=== PATIENT | male | born 1935 | race Caucasian/White ===

== ENCOUNTER 2018-06-13 16:21 | Emergency (ER) | payer MEDICARE, OTHER, SELFPAY ==
[2018-06-13 16:30] VITALS: BP 144/74; PULSE 71; RESP 14; TEMP 36.6; O2SAT 98
--- NOTE | 2018-06-13 16:50 | ED_ITS ---
HPI - Extremity Injury (Upper) <KIZZY Blanchard-BC - Last Filed: 06/13/18 21:30> General Chief Complaint: Extremity Injury, Upper Stated Complaint: FALL LEFT ARM INJURY Time Seen by Provider: 06/13/18 16:32 Source: patient Mode of arrival: ambulatory Limitations: no limitations History of Present Illness HPI narrative: Patient states he lost his balance several days ago and fell into a bookshelf with his left forearm. Patient states he tripped in the dark. He states that he has a cut on his left forearm. He states his tetanus was updated less than 5 years ago. He denies any weakness numbness or tingling of his left forearm or hand. He cleaned it out by himself at home and applied a dressing is requesting a both care dressing as his wound still hurts. He states he does not need or want an x-ray today. Related Data Home Medications Medication Instructions Recorded Confirmed carvedilol 6.25 mg tablet 6.25 mg PO BID tab 02/07/18 06/13/18 chlorthalidone 25 mg tablet 25 mg PO DAILY 02/07/18 06/13/18 lisinopril 40 mg tablet 40 mg PO DAILY 02/07/18 06/13/18 pravastatin 20 mg tablet 20 mg PO BEDTIME 02/07/18 06/13/18 aspirin 1 tab PO DAILY 06/13/18 fluticasone 2 spray INTRANASAL DAILY 06/13/18 06/13/18 Allergies Allergy/AdvReac Type Severity Reaction Status Date / Time No Known Drug Allergies Allergy Verified 02/07/18 13:48 Review of Systems <MARGOT Blanchard - Last Filed: 06/13/18 21:30> Review of Systems GENERAL: Denies chills, fatigue, malaise, fever, sweats. HEENT: Denies sinus pain, ear pain, sore throat, difficulty swallowing, dizziness. RESPIRATORY: Denies dyspnea, cough, wheezing, hemoptysis, sputum. CARDIOVASCULAR: Denies chest pain, palpitations, orthopnea, edema, GASTROINTESTINAL: Denies nausea, vomiting, abdominal pain, diarrhea, constipation, melena. : Denies dysuria, frequency, incontinence, hematuria, urinary retention. MUSCULOSKELETAL: See HPI SKIN: See HPI NEUROLOGIC: Denies weakness, headache, numbness, change in speech, confusion, seizures, incoordination. PSYCHIATRIC: No concerning psychosocial issues. 12 point review of systems is negative except for those stated above Exam <Jennifer KIZZY Martinez-BC - Last Filed: 06/13/18 21:30> Narrative Exam Narrative: GENERAL: This is a well-nourished, well-developed patient, no acute distress with forearm graft. HEAD: Atraumatic. Normocephalic. No temporal or scalp tenderness. EYES: Pupils equal round and reactive. Extraocular motions intact. No scleral icterus. No injection or drainage. ENT: Nose without bleeding, purulent drainage or septal hematoma. Throat without erythema, tonsillar hypertrophy or exudate. Uvula midline. Airway patent. NECK: Trachea midline. No JVD or lymphadenopathy. Supple, nontender, no meningeal signs. CARDIOVASCULAR: Regular rate and rhythm without murmurs, gallops, or rubs. RESPIRATORY: Clear to auscultation. Breath sounds equal bilaterally. No wheezes , rales, or rhonchi. GASTROINTESTINAL: Abdomen soft, non-tender, nondistended. No hepato-splenomegaly , or palpable masses. No guarding. EXTREMITIES: Left forearm and hand are nontender tender to palpation other than area of laceration. Positive radial pulse left hand full range of motion noted left fingers and wrist. Capillary refill less than 2 sec left hand all fingers. BACK: Nontender without deformity or crepitance. No flank tenderness. NEURO: AOx3. SKIN: Patient has a 3 cm full-thickness wound to his left forearm. This is it is through dermis into fascia. No tendon or muscle involvement. No obvious foreign bodies. Wound is not well-approximated. approximately 1 cm deep per measurement. No erythema or discharge. Initial Vital Signs Initial Vital Signs: Vital Signs Temperature 97.9 F 06/13/18 16:30 Pulse Rate 71 06/13/18 16:30 Respiratory Rate 14 06/13/18 16:30 Blood Pressure 144/74 H 06/13/18 16:30 Pulse Oximetry 98 06/13/18 16:30 <Lindy Suarez DO - Last Filed: 06/14/18 08:17> Initial Vital Signs Initial Vital Signs: Vital Signs Temperature 97.9 F 06/13/18 16:30 Pulse Rate 71 06/13/18 16:30 Respiratory Rate 14 06/13/18 16:30 Blood Pressure 144/74 H 06/13/18 16:30 Pulse Oximetry 98 06/13/18 16:30 Course <Jennifer RodriguezKIZZY mccormick-BC - Last Filed: 06/13/18 21:30> Vital Signs - 8 hr 06/13/18 16:30 Temperature 97.9 F Pulse Rate 71 Respiratory Rate 14 Blood Pressure 144/74 H Pulse Oximetry 98 <Lindy Suarez DO - Last Filed: 06/14/18 08:17> Vital Signs - 8 hr 06/13/18 16:30 Temperature 97.9 F Pulse Rate 71 Respiratory Rate 14 Blood Pressure 144/74 H Pulse Oximetry 98 MDM - Extremity Injury (Upper) <Jennifer MartinezMARGOTBC - Last Filed: 06/13/18 21:30> MDM Narrative Medical decision making narrative: Patient presents with chief complaint of wound to left forearm. He states that this happened several days ago and the side of not comfortable closing it with sutures. His tetanus is up-to-date. Given the depth of the wound, I am concerned about a superficial closure over potential abscess so I did place a reformed gauze into the wound after cleansing it with sterile water and Hibiclens. Also flushed out copiously. I discussed follow up with primary care in 2 days for wound re-evaluation. I discussed monitor for signs and symptoms of infection including pus, drainage and fever. Patient had no questions or concerns upon discharge. Discharge Plan Departure Patient Disposition: Home Clinical Impression: Skin tear Discharge Date/Time: 06/13/18 17:44 Interventions: ED Discharge Assessment Last Done: 06/13/18 17:44 Activity Restrictions/Additional Instructions: Please follow-up with her primary care provider in 2 days for wound check. They can evaluate your skin tear and check for signs and symptoms of infection at that time. They could also remove the packing. Please monitor for signs and symptoms of infection including redness from the skin tear site as well as fever. Please follow-up with primary care provider for new or worsening symptoms. Prescriptions: No Action carvedilol 6.25 mg tablet 6.25 mg PO BID RF: 0 chlorthalidone 25 mg tablet 25 mg PO DAILY RF: 0 pravastatin 20 mg tablet 20 mg PO BEDTIME RF: 0 lisinopril 40 mg tablet 40 mg PO DAILY RF: 0 aspirin 81 mg tablet,delayed release (DR/EC) 1 tab PO DAILY RF: 0 fluticasone 50 mcg/actuation spray,suspension 2 spray Intranasal DAILY RF: 0 Referrals: [facility] [Outside] <Lindy Suarez, - Last Filed: 06/14/18 08:17> Cosign ED Attending Cosignature Attestation: I was immediately available in the department for consultation. Documentation has been reviewed. I agree with assessment and plan.
--- NOTE | 2018-06-13 17:41 | PC.NURSE ---
GLF several days ago, tripped in the dark, struck lt forearm on furniture, approx 3 cm arrow shaped full thickness wound, bleeding controlled, distal cms intact, no surrounding redness/edema
--- NOTE | 2018-06-16 17:26 | PC.NURSE ---
follow up call, pt feeling fine, no questions and no improvement needed
== END 2018-06-13 17:44 | disposition home or self-care (01) ==
PROVIDERS: Emergency Provider Nurse Practitioner Family; Family Provider Physician Assistant Medical
DX: S41.112A Laceration without foreign body of left upper arm, initial encounter (principal); W19.XXXA Unspecified fall, initial encounter
CPT/HCPCS: 99282

== ENCOUNTER → 2018-06-15 14:42 | Outpatient (CLI) | payer MEDICARE, OTHER, SELFPAY | PROVIDERS: Family Provider Physician Assistant Medical; Visit Provider Physician Assistant | DX: S41.112A Laceration without foreign body of left upper arm, initial encounter (principal) | CPT/HCPCS: 87070; 87075; 87077; 87186; 87205 ==

== ENCOUNTER → 2018-06-17 14:19 | Outpatient (CLI) | payer MEDICARE, OTHER, SELFPAY ==
--- NOTE | 2018-06-17 | OV.WND_ITS ---
Progress Note Details Patient Name: Shant Young Patient Number: [id number] PatientPatientDate: 06/17/2018 Clinician: Gillian Pedersen Cosigner: Romina Drake Physician / Saw Superintendent: Dony Finch SUBJECTIVE Chief Complaint This information was obtained from the patient Laceration on left arm. Allergies cephalexin (Severity: Severe, Reaction: cardiac arrest) HPI This information was obtained from the patient 06/17/18. Seen by Dr. Finch. The patient's new to our clinic and presents with a deep left arm laceration wound that occurred 5 days ago when he hit the arm on a metal ornamental object in his bedroom. He was seen in the ER and states his tetanus is up to date. He does not report significant pain at the site nor drainage. Family History This information was obtained from the patient Cancer - Sibling, Child, Heart Disease - Mother, Stroke - Father Social History This information was obtained from the patient Former smoker - age 18-20, Alcohol Use - 1/day, Caffeine Use - 1/day, Children, Lives in [facility]- private home, Marital Status - , Retired, [place] Past Medical History This information was obtained from the patient Patient has a medical history of: Hypertension Surgical History This information was obtained from the patient Patient has a surgical history of: Cholecystectomy (1984) Stent placement in abdomen Complaints and Symptoms This information was obtained from the patient Patient complains of: General Notes: I have reviewed and concur with the Review of Systems and Past Family Social History documents completed by the clinician, I have reviewed and concur with the Wound Assessment document completed by the clinician Ear/Nose/Mouth/Throat: Hearing Loss / Aid Hematologic/Lymphatic: Bleeding Tendency Integumentary (Hair/Skin/Nails): Open Sore Prior Wound History: Bleeding Patient denies complaints or symptoms related to: Cardiovascular (Central): Irregular heart beat Constitutional Symptoms (General Health): Chills, Fever Hematologic/Lymphatic: Bleeding / Clotting Disorders Musculoskeletal: Assistive Devices Neurological: Loss of Protective Sensation Prior Wound History: Pain Psychiatric: Memory Loss Respiratory: Shortness of Breath General Notes: Up to date. Medications carvedilol - oral 6.25 mg 1 tablet twice daily pravastatin - oral 20 mg 1 tablet once daily lisinopril - oral 40 mg 1 tablet once daily Adult Low Dose Aspirin - oral 81 mg 1 tablet,delayed release (DR/EC) once daily omeprazole - oral 20 mg 1 capsule,delayed release(DR/EC) once daily chlorthalidone - oral 25 mg 1 tablet once daily gentamicin - topical 0.1 % ointment once daily for 7 days OBJECTIVE Constitutional BP elevated; Low grade fever; Alert and in no distress. Well developed. Alert. Clean appearing.. Height/Length: 68 in (172.72 cm), Weight: 180.5 lbs (82.05 kgs), BMI : 27.4, Temperature: 99.1 ?F (37.28 ?C), Pulse: 58 bpm, Respiratory Rate: 16 breaths/min , Blood Pressure: 141/77 mmHg, Pulse Oximetry: 98 %. Ears, Nose, Mouth, and Throat: Mild hearing deficit. Respiratory: No respiratory distress. Even respirations and without use of accessory muscles.. Gastrointestinal (GI): Non-obese. Nondistended.. Integumentary (Hair, Skin) Mild periwound erythema with warmth. Refer to appropriate clinician wound documentation for this visit; left forearm wound extends to fascia, heavy biofilm and slough over base however no purulent drainage. Wound #1 Left Arm is an acute Full Thickness Laceration and has received a status of Not Healed. Initial wound encounter measurements are 2.5cm length x 1.8cm width x 1.1cm depth, with an area of 4.5 sq cm and a volume of 4.95 cubic cm. Tunneling has been noted at 6:00 with a maximum distance of 1.6cm. No sinus tract has been noted. No undermining has been noted. There is a large amount of purulent drainage noted which has a mild odor. The patient reports a wound pain of level 2/10. The wound margin is rolled. Wound bed has No epithelialization, Yes eschar, Yes slough, Yes bright red, pink, firm granulation. The periwound skin moisture is normal. The periwound skin exhibited: Edema, Induration, Erythema. The periwound skin did not exhibit: Brawny Induration, Excoriation, Callus, Crepitus, Fluctuance, Friable, Rash, Atrophie Ginny, Cyanosis, Ecchymosis, Hemosiderosis, Pallor, Rubor. The temperature of the periwound skin is WNL. Periwound skin presents with s/s of infection. Confirmation Description and Treatment Plan is: Signs and Symptoms Present. Local Pulse is Palpable. Neurological: Cranial nerves grossly intact with symmetric function normal by informal observation.. ASSESSMENT Active Problems ICD-10 (Encounter Diagnosis) S51.812D - Laceration without foreign body of left forearm , subsequent encounter (Encounter Diagnosis) S41.102D - Unspecified open wound of left upper arm, subsequent encounter (Encounter Diagnosis) L08.9 - Local infection of the skin and subcutaneous tissue, unspecified PROCEDURES Wound #1 Wound #1 (Laceration) is located on the left arm. A skin/subcutaneous tissue level surgical debridement with a total area debrided of 4.5 sq cm was performed by Dony Finch MD. Subcutaneous was removed along with devitalized tissue: slough. The following instrument(s) were used: curette. Pain control was achieved using 4% Lido. A time out was conducted prior to the start of the procedure. A moderate amount of bleeding was controlled with silver nitrate. The procedure was tolerated well with a pain level of 0 throughout and a pain level of 0 following the procedure. Post Debridement Measurements: 2.5cm length x 1.8cm width x 1.2cm depth; with an area of 4.5 sq cm and a volume of 5.4 cubic cm; Additional Information Muscle fascia or bone removed and sent to pathology?: No PLAN Wound Orders: Wound #1 Left Arm Anesthetic Topical Xylocaine to wound bed. - Lidocaine used in clinic. Cleanser Cleanse Wound: - Normal saline and gauze, may use distilled water at home. May Shower. - Cover in shower. Topical Treatments Antibiotic/Antimicrobial Ointment/Cream. - Gentamicin ointment using clean q- tip. Dressings Pack wound: - Lightly fill 1/4 gauze ribbon, using clean q-tip. Cover and secure with: - Aquacel bordered foam and netting on arm for protection. Change Dressing: - Every other day. Follow-Up Appointments Return Appointment: - - About 1 week. Other information: If you develop fever, chills, increased pain, drainage, redness or swelling please call our office. If after hours, respond to the ER. Should you experience any significant changes in your wound(s) or have any questions regarding your home care instructions please contact the wound center @ [phone]. If after hours, contact your primary care physician or go to the hospital emergency room. Scribing Attestation I attest, as the nurse, that I scribed these orders for the physician. Laboratory: Culture Wound - We will call you with culture results if any oral antibiotics are required. General Notes: Supplies ordered through [facility], please expect dressing supplies to be delivered to your home in the next 1-2 days. Please pick and shovel man the prescription for gentamicin from [facility] pharmacy. I've reviewed the clinician's documentation and agree with the evaluation and plan as written. In addition the patient's wound demonstrates evidence of non-viable devitalized tissue which will continue to benefit from sharp debridement to help promote granulation and expedite healing. Also, I've cultured the wound due to the heavy biofilm and periwound erythema and will start treating a superficial infection with topical gentamicin. Electronic Signature(s) Signed By: Date: Dony Finch MD 06/20/2018 13:28:46 Entered By: Dony Finch on 06/20/2018 06:35:51
== END ==
PROVIDERS: Family Provider Physician Assistant Medical; Visit Provider Internal Medicine
DX: S51.812A Laceration without foreign body of left forearm, initial encounter (principal); W26.8XXA Contact with other sharp object(s), not elsewhere classified, initial encounter; L08.9 Local infection of the skin and subcutaneous tissue, unspecified; I10 Essential (primary) hypertension
CPT/HCPCS: 11042; 87070; 87075; 87077; 87186; 87205; 99213

== ENCOUNTER → 2018-06-24 13:06 | Outpatient (CLI) | payer MEDICARE, OTHER, SELFPAY | PROVIDERS: Family Provider Physician Assistant Medical; Visit Provider Family Medicine | DX: L08.9 Local infection of the skin and subcutaneous tissue, unspecified (principal); S41.102A Unspecified open wound of left upper arm, initial encounter | CPT/HCPCS: 11042 ==

== ENCOUNTER 2018-06-27 09:47 | Emergency (ER) | payer MEDICARE, OTHER, SELFPAY ==
[2018-06-27 09:55] VITALS: BP 153/71; PULSE 53; RESP 13; TEMP 36; O2SAT 97
--- NOTE | 2018-06-27 10:55 | ED_ITS ---
HPI - Neck Pain/Injury General Chief Complaint: Neck Pain/Injury Stated Complaint: SEVERE BACK NECK PAIN Time Seen by Provider: 06/27/18 10:55 Source: patient Mode of arrival: ambulatory Limitations: no limitations History of Present Illness HPI Narrative: 82 y/o male with 1-2 days of left sided neck pain, no trauma. states that he has had pain in the past but not this bad. no radiation to his arm. no headache. has been on motrin before coming into the ER. no rahses Related Data Home Medications Medication Instructions Recorded Confirmed carvedilol 6.25 mg tablet 6.25 mg PO BID tab 02/07/18 06/27/18 chlorthalidone 25 mg tablet 25 mg PO DAILY 02/07/18 06/27/18 lisinopril 40 mg tablet 40 mg PO DAILY 02/07/18 06/27/18 pravastatin 20 mg tablet 20 mg PO BEDTIME 02/07/18 06/27/18 aspirin 1 tab PO DAILY 06/13/18 06/27/18 fluticasone 2 spray INTRANASAL DAILY 06/13/18 06/27/18 sulfamethoxazole-trimethoprim 1 tab PO BID 06/27/18 06/27/18 Previous Rx's Medication Instructions Recorded cyclobenzaprine 10 mg PO TID PRN #21 tab 06/27/18 meloxicam 15 mg PO DAILY #30 tab 06/27/18 Allergies Allergy/AdvReac Type Severity Reaction Status Date / Time No Known Drug Allergies Allergy Verified 06/15/18 13:38 Review of Systems Constitutional Denies fever(s) and Denies headache(s) ENT Ears, Nose, Mouth, and Throat: Denies vertigo, Denies dizziness, Denies headache (s) and Reports neck pain Cardiovascular Denies chest pain and Denies dyspnea Respiratory Denies dyspnea Gastrointestinal Gastrointestinal: Denies abdominal pain Musculoskeletal Denies back pain, Denies myalgias, Denies arthralgias, Reports limited range of motion, Reports neck pain, Denies numbness and Denies radiating pain into limb Integumentary/Breasts Denies rash and Denies wounds Neurologic Denies vertigo, Denies dizziness, Denies headache(s) and Denies numbness [facility] Medical History Hyperlipidemia (Acute) Hypertension (Acute) Surgical History No pertinent past surgical history (Acute) Exam Initial Vital Signs Initial Vital Signs: Vital Signs Temperature 96.8 F L 06/27/18 09:55 Pulse Rate 53 L 06/27/18 09:55 Respiratory Rate 13 06/27/18 09:55 Blood Pressure 153/71 H 06/27/18 09:55 Pulse Oximetry 97 06/27/18 09:55 Const General: cooperative, healthy appearing, well developed, well groomed and No acute distress Orientation: alert and oriented x3 HENMT Head: normal to inspection and normocephalic Neck Neck: No positive Kernig's sign, tender (left posterior aspect), No torticollis and No tracheal deviation Resp Effort & Inspection: normal respiratory effort Back/Spine/Pelvis Cervical Spine: cervical ROM normal Other: fullness over the left superior/posterior left shoulder. Skin Lesions: no lesions Rashes: no rashes Neuro Motor: muscle tone normal throughout Sensory Exam: no sensory deficits noted Extrem Left upper extremity: normal to inspection, normal capillary refill and shoulder /upper arm Details: inspection abnormal; no edema Psych Appearance: grossly normal and well kempt Course Vital Signs - 8 hr 06/27/18 09:55 Temperature 96.8 F L Pulse Rate 53 L Respiratory Rate 13 Blood Pressure 153/71 H Pulse Oximetry 97 MDM - Neck Pain/Injury MDM Narrative Medical decision making narrative: suspect muscle spasm. I was able to reproduce the pain with palpation. doubt fracture as there was no trauma. will start on muscle relaxant medications. pt was informed that he needed to be careful about not falling on these medications. he was given return precautions. he expressed understanding and agreement with plan. Discharge Plan Departure Patient Disposition: Home Clinical Impression: Spasm of cervical paraspinous muscle Discharge Date/Time: 06/27/18 11:29 Interventions: ED Discharge Assessment Last Done: 06/27/18 11:25 Instructions: DI for Cervical Muscle Strain Activity Restrictions/Additional Instructions: I do recommend that you take the meloxicam/Mobic on a daily basis for the next week. After that you can do it as needed. The Flexeril/cyclobenzaprine as a muscle relaxer and you can use this as needed. Call your primary care doctor for follow-up. Return to the emergency department for any new or worsening symptoms Prescriptions: New cyclobenzaprine 10 mg tablet 10 mg PO TID PRN (Reason: muscle spasm) Qty: 21 RF: 0 meloxicam 15 mg tablet 15 mg PO DAILY Qty: 30 RF: 0 No Action carvedilol 6.25 mg tablet 6.25 mg PO BID RF: 0 chlorthalidone 25 mg tablet 25 mg PO DAILY RF: 0 pravastatin 20 mg tablet 20 mg PO BEDTIME RF: 0 lisinopril 40 mg tablet 40 mg PO DAILY RF: 0 sulfamethoxazole-trimethoprim 800-160 mg tablet 1 tab PO BID RF: 0 aspirin 81 mg tablet,delayed release (DR/EC) 1 tab PO DAILY RF: 0 fluticasone 50 mcg/actuation spray,suspension 2 spray Intranasal DAILY RF: 0
[2018-06-27 11:27] VITALS: BP 160/70; PULSE 93; RESP 16; O2SAT 94
== END 2018-06-27 11:29 | disposition home or self-care (01) ==
PROVIDERS: Emergency Provider Emergency Medicine; Family Provider Physician Assistant Medical
DX: M62.838 Other muscle spasm (principal)
CPT/HCPCS: 99282

== ENCOUNTER → 2018-07-01 10:07 | Outpatient (CLI) | payer MEDICARE, OTHER, SELFPAY ==
--- NOTE | 2018-07-01 | OV.WND_ITS ---
Progress Note Details Patient Name: Shant Young Patient Number: [id number] PatientPatientDate: 07/01/2018 Clinician: Gillian Pedersen Clinician Cosigner: Romina Drake Physician / Comic Book Artist: Dony Finch SUBJECTIVE Chief Complaint This information was obtained from the patient Laceration on left arm. Allergies cephalexin (Severity: Severe, Reaction: cardiac arrest) HPI This information was obtained from the patient 07/01/18. Seen by Dr. Finch. The patient does not report pain or significant drainage associated with the left forearm laceration since his last visit and he continues to apply topical gentamicin to the site to continue treatment of the recent Proteus positive wound culture. 06/17/18. Seen by Dr. Finch. The patient's new to our clinic and presents with a deep left arm laceration wound that occurred 5 days ago when he hit the arm on a metal ornamental object in his bedroom. He was seen in the ER and states his tetanus is up to date. He does not report significant pain at the site nor drainage. Past Medical History This information was obtained from the patient Patient has a medical history of: Hypertension Complaints and Symptoms This information was obtained from the patient Patient complains of: General Notes: I have reviewed and concur with the Review of Systems and Past Family Social History documents completed by the clinician, I have reviewed and concur with the Wound Assessment document completed by the clinician Ear/Nose/Mouth/Throat: Hearing Loss / Aid Hematologic/Lymphatic: Bleeding Tendency Integumentary (Hair/Skin/Nails): Open Sore Prior Wound History: Bleeding Patient denies complaints or symptoms related to: Cardiovascular (Central): Irregular heart beat Constitutional Symptoms (General Health): Chills, Fever Hematologic/Lymphatic: Bleeding / Clotting Disorders Musculoskeletal: Assistive Devices Neurological: Loss of Protective Sensation Prior Wound History: Pain Psychiatric: Memory Loss Respiratory: Shortness of Breath OBJECTIVE Constitutional Vital signs reviewed and noted. Well developed. Alert. Clean appearing.. Height/ Length: 68 in (172.72 cm), Weight: 180.5 lbs (82.05 kgs), BMI: 27.4, Temperature: 98.2 ?F ( 36.78 ?C), Pulse: 71 bpm, Respiratory Rate: 18 breaths/min, Blood Pressure: 113/70 mmHg, Pulse Oximetry: 98 %. Ears, Nose, Mouth, and Throat: Moderate hearing deficit. Integumentary (Hair, Skin) No periwound erythema, warmth, or significant drainage. No periwound rashes appreciated or noted otherwise.. Refer to appropriate clinician wound documentation for this visit; left forearm wound extends to deep subcut with base covered with biofilm and red, friable granulation. Wound #1 Left Arm is an acute Full Thickness Laceration and has received a status of Not Healed. Subsequent wound encounter measurements are 1.5cm length x 1.2cm width x 0.5cm depth, with an area of 1.8 sq cm and a volume of 0.9 cubic cm. Tunneling has been noted at 7:00 with a maximum distance of 0.8cm. No sinus tract has been noted. No undermining has been noted. There is a moderate amount of serosanguineous drainage noted which has no odor. The patient reports a wound pain of level 0/10. The wound margin is rolled. Wound bed has Yes epithelialization, No eschar, Yes slough, Yes bright red, pink, firm granulation. The periwound skin moisture is normal. The periwound skin exhibited: Edema, Induration. The periwound skin did not exhibit: Brawny Induration, Excoriation, Callus, Crepitus , Fluctuance, Friable, Rash, Atrophie Ginny, Cyanosis, Ecchymosis, Erythema, Hemosiderosis, Pallor, Rubor. The temperature of the periwound skin is WNL. Periwound skin does not exhibit signs or symptoms of infection. Local Pulse is Palpable. General Notes: No muscle necrosis per Dr. Finch. Neurological: Cranial nerves grossly intact with symmetric function normal by informal observation.. ASSESSMENT Active Problems ICD-10 (Encounter Diagnosis) L08.9 - Local infection of the skin and subcutaneous tissue, unspecified (Encounter Diagnosis) S41.102D - Unspecified open wound of left upper arm, subsequent encounter (Encounter Diagnosis) B96.4 - Proteus (mirabilis) (morganii) as the cause of diseases classified elsewhere PROCEDURES Wound #1 Wound #1 (Laceration) is located on the left arm. A skin/subcutaneous tissue level surgical debridement with a total area debrided of 1.8 sq cm was performed by Dony Finch MD. Subcutaneous was removed along with devitalized tissue: exudate and slough. The following instrument(s) were used: curette. Pain control was achieved using 4% Lido. A time out was conducted prior to the start of the procedure. A minimal amount of bleeding was controlled with pressure. The procedure was tolerated well with a pain level of 0 throughout and a pain level of 0 following the procedure. Post Debridement Measurements: 1.5cm length x 1.2cm width x 0.6cm depth; with an area of 1.8 sq cm and a volume of 1.08 cubic cm; Additional Information Muscle fascia or bone removed and sent to pathology?: No PLAN Wound Orders: Wound #1 Left Arm Cleanser Cleanse Wound: - Distilled water May Shower. - But keep dressing dry Topical Treatments Antibiotic/Antimicrobial Ointment/Cream. - Gentamicin on gauze ribbon. Dressings Pack wound: - Lightly pack gentamicin gauze ribbon into wound. Primary dressing: - Border foam. Change Dressing: - Every other day. Follow-Up Appointments Return Appointment: - - One week. Other information: If you develop fever, chills, increased pain, drainage, redness or swelling please call our office. If after hours, respond to the ER. Should you experience any significant changes in your wound(s) or have any questions regarding your home care instructions please contact the wound center @ [phone]. If after hours, contact your primary care physician or go to the hospital emergency room. Scribing Attestation I attest, as the nurse, that I scribed these orders for the physician. I've reviewed the clinician's documentation and agree with the evaluation and plan as written. In addition the patient's wound demonstrates evidence of non-viable devitalized tissue which will continue to benefit from sharp debridement to help promote granulation and expedite healing. Also, he'll continue to apply topical gentamicin to the wound site. Electronic Signature(s) Signed By: Date: Dony Finch MD 07/01/2018 15:01:25 Entered By: Dony Finch on 07/01/2018 14:58:21
== END ==
PROVIDERS: Family Provider Physician Assistant Medical; Visit Provider Internal Medicine
DX: S41.102A Unspecified open wound of left upper arm, initial encounter (principal); B96.4 Proteus (mirabilis) (morganii) as the cause of diseases classified elsewhere
CPT/HCPCS: 11042

== ENCOUNTER → 2018-07-08 10:54 | Outpatient (CLI) | payer MEDICARE, OTHER, SELFPAY ==
--- NOTE | 2018-07-08 | OV.WND_ITS ---
Progress Note Details Patient Name: Shant Young Patient Number: [id number] PatientPatientDate: 07/08/2018 Physician / Sales Recruiting Coordinator: Dony Finch SUBJECTIVE Chief Complaint This information was obtained from the patient Laceration on left arm. Allergies cephalexin (Severity: Severe, Reaction: cardiac arrest) HPI This information was obtained from the patient 07/08/18. Seen by Dr. Finch. The patient does not report pain or significant drainage associated with the left forearm laceration since his last visit and he continues to apply topical gentamicin to the site to continue treatment of the recent Proteus positive wound culture. 07/01/18. Seen by Dr. Finch. The patient does not report pain or significant drainage associated with the left forearm laceration since his last visit and he continues to apply topical gentamicin to the site to continue treatment of the recent Proteus positive wound culture. 06/17/18. Seen by Dr. Finch. The patient's new to our clinic and presents with a deep left arm laceration wound that occurred 5 days ago when he hit the arm on a metal ornamental object in his bedroom. He was seen in the ER and states his tetanus is up to date. He does not report significant pain at the site nor drainage. Past Medical History This information was obtained from the patient Patient has a medical history of: Hypertension Complaints and Symptoms This information was obtained from the patient Patient complains of: General Notes: I have reviewed and concur with the Review of Systems and Past Family Social History documents completed by the clinician, I have reviewed and concur with the Wound Assessment document completed by the clinician Ear/Nose/Mouth/Throat: Hearing Loss / Aid Hematologic/Lymphatic: Bleeding Tendency Integumentary (Hair/Skin/Nails): Open Sore Prior Wound History: Bleeding Patient denies complaints or symptoms related to: Cardiovascular (Central): Irregular heart beat Constitutional Symptoms (General Health): Chills, Fever Hematologic/Lymphatic: Bleeding / Clotting Disorders Musculoskeletal: Assistive Devices Neurological: Loss of Protective Sensation Prior Wound History: Pain Psychiatric: Memory Loss Respiratory: Shortness of Breath OBJECTIVE Constitutional Vital signs reviewed and noted. Well developed. Alert. Clean appearing.. Height/ Length: 68 in (172.72 cm), Weight: 180.3 lbs (81.95 kgs), BMI: 27.4, Temperature: 98. ?F ( 36.67 ?C), Pulse: 72 bpm, Respiratory Rate: 18 breaths/min, Blood Pressure: 136/76 mmHg, Pulse Oximetry: 97 %. Vital Signs Notes: ER visit a week or two ago for neck spams. Nothing to report on arm wound. Respiratory: No respiratory distress. Even respirations and without use of accessory muscles.. Integumentary (Hair, Skin) No periwound erythema, warmth, or significant drainage. No periwound rashes appreciated or noted otherwise.. Refer to appropriate clinician wound documentation for this visit; left forearm wound extends to deep subcut. Wound #1 Left Arm is an acute Full Thickness Laceration and has received a status of Not Healed. Subsequent wound encounter measurements are 1.2cm length x 0.7cm width x 0.5cm depth, with an area of 0.84 sq cm and a volume of 0.42 cubic cm. There is a small amount of serosanguineous drainage noted which has no odor. The patient reports a wound pain of level 0/10. The wound margin is rolled. Wound bed has Yes epithelialization, No eschar , Yes slough, Yes bright red, pink, firm granulation. The periwound skin moisture is normal. The periwound skin exhibited: Edema, Induration. The periwound skin did not exhibit: Brawny Induration, Excoriation, Callus, Crepitus , Fluctuance, Friable, Rash, Atrophie Ginny, Cyanosis, Ecchymosis, Erythema, Hemosiderosis, Pallor, Rubor. The temperature of the periwound skin is WNL. Periwound skin does not exhibit signs or symptoms of infection. Local Pulse is Palpable. Neurological: Cranial nerves grossly intact with symmetric function normal by informal observation.. ASSESSMENT Active Problems ICD-10 (Encounter Diagnosis) L08.9 - Local infection of the skin and subcutaneous tissue, unspecified (Encounter Diagnosis) S41.102D - Unspecified open wound of left upper arm, subsequent encounter (Encounter Diagnosis) B96.4 - Proteus (mirabilis) (morganii) as the cause of diseases classified elsewhere PROCEDURES Wound #1 Wound #1 (Laceration) is located on the left arm. A skin/subcutaneous tissue level surgical debridement with a total area debrided of 0.84 sq cm was performed by Dony Finch MD. Subcutaneous was removed along with devitalized tissue: slough. The following instrument(s) were used: curette. Pain control was achieved using 4% Lido. A time out was conducted prior to the start of the procedure. No bleeding occurred. The procedure was tolerated well with a pain level of 0 throughout and a pain level of 0 following the procedure. Post Debridement Measurements: 1.2cm length x 0.7cm width x 0.6cm depth; with an area of 0.84 sq cm and a volume of 0.504 cubic cm; Additional Information Muscle fascia or bone removed and sent to pathology?: No PLAN Wound Orders: Wound #1 Left Arm Cleanser Cleanse Wound: - Distilled water May Shower. - But keep dressing dry Topical Treatments Antibiotic/Antimicrobial Ointment/Cream. - Triple antibiotic ointment (over the counter). Dressings Primary dressing: - Border foam. Change Dressing: - Every other day. Scribing Attestation I attest, as the nurse, that I scribed these orders for the physician. Additional Orders: Follow-Up Appointments Return Appointment: - - 1 week. I've reviewed the clinician's documentation and agree with the evaluation and plan as written. In addition the patient's wound demonstrates evidence of non-viable devitalized tissue which will continue to benefit from sharp debridement to help promote granulation and expedite healing. Also, we'll discontinue use of gentamicin for now and he'll use OTC topical antibiotic to maintain hydration of the wound base. Electronic Signature(s) Signed By: Date: Dony Finch MD 07/11/2018 06:58:18 Entered By: Dony Finch on 07/11/2018 06:41:18
== END ==
PROVIDERS: Family Provider Physician Assistant Medical; Visit Provider Internal Medicine
DX: S41.102A Unspecified open wound of left upper arm, initial encounter (principal); L08.9 Local infection of the skin and subcutaneous tissue, unspecified
CPT/HCPCS: 11042

== ENCOUNTER → 2018-07-15 13:00 | Outpatient (CLI) | payer MEDICARE, OTHER, SELFPAY | PROVIDERS: Family Provider Physician Assistant Medical; Visit Provider Family Medicine | DX: S51.812A Laceration without foreign body of left forearm, initial encounter (principal) | CPT/HCPCS: 99212; 99213 ==

== ENCOUNTER → 2018-07-21 14:10 | Outpatient (CLI) | payer MEDICARE, OTHER, SELFPAY | PROVIDERS: Family Provider Physician Assistant Medical; Visit Provider Family Medicine | DX: Z48.817 Encounter for surgical aftercare following surgery on the skin and subcutaneous tissue (principal) | CPT/HCPCS: 99212 ==

== ENCOUNTER 2020-05-16 14:30 | Outpatient (RCR) | payer MEDICARE, OTHER, SELFPAY ==
--- NOTE | 2020-03-19 19:01 | PT.OIE ---
Current Diagnoses Unspecified urinary incontinence (03/19/20) Past Medical History (Last Reviewed 06/29/18 @ 15:55 by Guy Godoy DO) Hyperlipidemia (Acute) Hypertension (Acute) Past Surgical History (Last Reviewed 06/29/18 @ 15:55 by Guy Godoy DO) No pertinent past surgical history (Acute) Visit Care Team Role Provider Type Dony Finch MD Family Provider Physician Primary Care Provider Specialty: Wound Care Address: [address] [place] [address], [id number] Email: [email or web address] Terry MD Attending Provider Physician Referring Provider Specialty: Urology Address: [facility] [place] [address], [address] Phone: Email: Physical Therapy Initial Evaluation PT-OP-A Visit Information Start: 03/13/20 09:42 Freq: Status: Active Protocol: Document 03/13/20 11:15 [facility] (Rec: 03/19/20 18:45 [facility] [id number]) Out-Patient Physical Therapy Visit Information Visit Information Visit Type Initial Evaluation Visit Start Time 11:15 Visit Stop Time 12:00 Total Visit Minutes 45 Visit Number 1 Evaluation Information Evaluation Date 03/13/20 PT-OP-B Current Condition Start: 03/13/20 09:42 Freq: Status: Active Protocol: Document 03/13/20 11:21 [facility] (Rec: 03/13/20 11:34 [facility] [id number]) Current Condition History of Current Condition Onset Date 8-10 years ago Current Complaints Overactive bladder symtoms worsen overtime History of Current Condition Things have been going on awhile. He goes to bed then two hours later has to wake up to void. He generally wakes at least 4 times per night to void. Sometimes from 5-8 in the am he has to wake up 3 times During the day he doesn 't have too much trouble. As soon as he gets up he notices it more. When he is laying down he gets the urge. The only time he gets leakage is with standing. Hx of Gall bladder surgery 1982. Likes to drink a few beers at night, in the am he drinks coffee and juice. Goes to bed about 10:30 and reads for a hour prior to bed. Pt reports he drinks 2 glasses of water per day in the am then juice 2-3 pm , 5:30 a couple of beers. Pt reports when he voids at night he stands up by the side of the bed to void. past medical history included elevated blood pressure. Treatment Goals Patient/Caregiver Goals Shant reports he would like to reduce his urgency and the number of times he has to void expecially at night Current Functional Impairments (Reported) Functional Limitations- Other frequent urgency to void limits sleeping duration and inturrupts sleep PT-OP-C Subjective Start: 03/13/20 09:42 Freq: Status: Active Protocol: Document 03/13/20 11:15 [facility] (Rec: 03/19/20 18:45 [facility] [id number]) Patient Questionnaires Pelvic Pain and Urgency/Frequency Patient Symptom Scale Pelvic Pain Score 12 PT-OP-F Manual Assessment Start: 03/19/20 18:45 Freq: Status: Active Protocol: Document 03/13/20 18:46 [facility] (Rec: 03/19/20 18:49 [facility] [id number]) Manual Assessments Soft Tissue Assessment Soft Tissue Mobility Assessment There are restrictions in the suprapubic fascia, iliopsoas and quad tightness bilaterally , PT-OP-I Pelvic Floor Start: 03/13/20 09:42 Freq: Status: Active Protocol: Document 03/13/20 18:46 [facility] (Rec: 03/19/20 18:49 [facility] [id number]) Pelvic Floor Assessment Pelvic Clock Pelvic Clock Other with external assessment today Simba has difficulty recruiting his pelvic floor muscles. He tends to perform a valsalva and presses out through his abdominal wall. He lacks endurance holds of more than 3 -4 seconds PT-OP-J Posture/Palpation/Skin Start: 03/13/20 09:42 Freq: Status: Active Protocol: Document 03/13/20 11:15 [facility] (Rec: 03/19/20 18:45 [facility] [id number]) Posture Evaluation Position Standing T-Spine Posture Increased Kyphosis Palpation Assessment Location One Palpation Location suprapubic fascia Palpation Details myofascial restrictions across the suprapubic fascia PT-OP-K Range of Motion Start: 03/19/20 18:45 Freq: Status: Active Protocol: Document 03/13/20 18:46 [facility] (Rec: 03/19/20 18:49 [facility] [id number]) Hip Goniometric Range of Motion Hip Right Hip ROM WFL No Testing Position Supine Extension 5 Left Hip ROM WFL No Extension 5 Hip ROM Limitations Hip ROM Limitations Soft Tissue Tightness Comments tightness in the iliopsoas restricts full hip extension PT-OP-Q Treatments Start: 03/13/20 09:42 Freq: Status: Active Protocol: Document 03/13/20 11:15 [facility] (Rec: 03/19/20 18:45 [facility] [id number]) Therapeutic Exercises Supine Exercises 2 Supine Exercise Name single knee to chest with opp leg straight Reps/Minutes 1 min each side 1 Supine Exercise Name pelvic floor long holds Reps/Minutes 10 second hold time and 10 second relaxation Comments pt needed verbal cues to not hold his breath, 2 sets of 10 per day Prone Exercises 1 Prone Exercise Name prone on elbows stretch for the abdominal wall Reps/Minutes pt to hold 1-2 min PT-OP-T Assessment and Plan Start: 03/13/20 09:42 Freq: Status: Active Protocol: Document 03/13/20 11:15 [facility] (Rec: 03/19/20 18:45 [facility] [id number]) Physical Therapy Assessment Goals Four Impairment Decreased ability to facilitate the pelvic floor and poor endurance Paint Formulator Goal (LTG) Shant is able to sustain a pelvic floor contraction for 10 seconds in the supine position and 5 seconds in a standing position LTG Duration 8 weeks Three Impairment Pt has a history of drinking multiple bladder irritants during the day Short Term Goal (STG) Shant is educated on bladder irritants and is given a bladder diary to track his daily voids/leaks STG Duration 3 weeks Two Impairment Tightness of the iliopsoas and anterior abdominal wall Short Term Goal (STG) Shant is educated on stetches for the anterior hips and abdominal wall to decrease any tissue tightness surrounding the bladder than can interfere with full expansion and filling. STG Duration 4 weeks One Impairment urinary urgency and nocturia walking up at least 4 xms at night to void Short Term Goal (STG) Shant is instructed in bladder retraining and urge defernce technique STG Duration 3 weeks Paint Formulator Goal (LTG) Shant is able to void every 2-3 hours during the day and he has decreased his night time voiding amount to waking 1-2 times per night LTG Duration 8 weeks Assessment Summary Assessment Shant presents to physcial therapy today with symptoms of a overactive bladder and frequency urgency to void. He has complaints of nocturia approximately 4 xms per night. Nocturia is his chief complaint. When looking at dietary irritants he drinks both coffee and juice in the am and 2 beers at night before bed. He notes he drinks 1-2 glasses of water per day. I started him with a bladder diary today and educated him on bladder irritants as this may help with his urgency. With examination today Shant has difficulty recruiting his pelvic floor muscles without a valsalva maneuver. He tends to bulge out his abdominal wall verses his pelvic floor. He has poor pelvic floor endurance. He is also quite restricted in his hip flexors bilaterally limiting full extension and has myofascial restrictions across the lower abdominal wall and suprapubic fascia. I started him with endurance holds of his pelvic floor as well as stretches for the abdominal wall and hips. Treatment will include bladder retraining, urge deference technique, manual therapy techniques to relax the anterior abdominal fascia, pelvic floor endurance training and proper recruitment of the abdominal wall and pelvic floor without valsalva. Physical Therapy Plan Frequency and Duration Frequency of Treatment 1x/Week Duration of Treatment 8 Plan of Care Start Date 03/13/20 Plan of Care End Date 05/08/20 Therapeutic Interventions Therapeutic Interventions Home Exercise Program,Manual Therapy,Neuromuscular Re- education,Patient/Caregiver Education,Self-Care/Home Management,Soft Tissue Mobilization,Therapeutic Exercises Next Visit Focus/Plan Next Note Type Treatment Note Next Visit Plan begin bladder retraining next visit
--- NOTE | 2020-03-19 19:01 | PT.OPPOC ---
Physical, Occupational & Speech Therapy At [facility] Current Diagnoses Unspecified urinary incontinence (03/19/20) Visit Care Team Role Provider Type Dony Finch MD Family Provider Physician Primary Care Provider Specialty: Wound Care Address: [address] [place] [address], [id number] Email: [email or web address] Nisreen Terry MD Attending Provider Physician Referring Provider Specialty: Urology Address: [address] [place] [address], [id number] Phone: Email: Plan Of Care PT-OP-T Assessment and Plan Start: 03/13/20 09:42 Freq: Status: Active Protocol: Document 03/13/20 11:15 [facility] (Rec: 03/19/20 18:45 [facility] [id number]) Physical Therapy Assessment Goals Four Impairment Decreased ability to facilitate the pelvic floor and poor endurance Silverware Cleaner Goal (LTG) Shant is able to sustain a pelvic floor contraction for 10 seconds in the supine position and 5 seconds in a standing position LTG Duration 8 weeks Three Impairment Pt has a history of drinking multiple bladder irritants during the day Short Term Goal (STG) Shant is educated on bladder irritants and is given a bladder diary to track his daily voids/leaks STG Duration 3 weeks Two Impairment Tightness of the iliopsoas and anterior abdominal wall Short Term Goal (STG) Shant is educated on stretches for the anterior hips and abdominal wall to decrease any tissue tightness surrounding the bladder than can interfere with full expansion and filling. STG Duration 4 weeks One Impairment urinary urgency and nocturia walking up at least 4 xms at night to void Short Term Goal (STG) Shant is instructed in bladder retraining and urge deference technique STG Duration 3 weeks Retirement Goal (LTG) Shant is able to void every 2-3 hours during the day and he has decreased his night time voiding amount to waking 1-2 times per night LTG Duration 8 weeks Assessment Summary Assessment Shant presents to physical therapy today with symptoms of a overactive bladder and frequency urgency to void. He has complaints of nocturia approximately 4 xms per night. Nocturia is his chief complaint. When looking at dietary irritants he drinks both coffee and juice in the am and 2 beers at night before bed. He notes he drinks 1-2 glasses of water per day. I started him with a bladder diary today and educated him on bladder irritants as this may help with his urgency. With examination today Shant has difficulty recruiting his pelvic floor muscles without a valsalva maneuver. He tends to bulge out his abdominal wall verses his pelvic floor. He has poor pelvic floor endurance. He is also quite restricted in his hip flexors bilaterally limiting full extension and has myofascial restrictions across the lower abdominal wall and suprapubic fascia. I started him with endurance holds of his pelvic floor as well as stretches for the abdominal wall and hips. Treatment will include bladder retraining, urge deference technique, manual therapy techniques to relax the anterior abdominal fascia, pelvic floor endurance training and proper recruitment of the abdominal wall and pelvic floor without valsalva. Physical Therapy Plan Frequency and Duration Frequency of Treatment 1x/Week Duration of Treatment 8 Plan of Care Start Date 03/13/20 Plan of Care End Date 05/08/20 Therapeutic Interventions Therapeutic Interventions Home Exercise Program,Manual Therapy,Neuromuscular Re- education,Patient/Caregiver Education,Self-Care/Home Management,Soft Tissue Mobilization,Therapeutic Exercises Next Visit Focus/Plan Next Note Type Treatment Note Next Visit Plan begin bladder retraining next visit Plan of Care Dates Plan of Care Start Date 03/13/20 Plan of Care End Date 05/08/20 Electronically Signed by: Nitza Rodriguez, PT 03/19/20 1999 Please Sign and Return: I have reviewed this Plan of Care and certify that the skilled therapy services above are required to meet the patient?s needs. Physician Signature Date Printed Name and Credentials Clinical Instructor Signature Printed Name and Credentials
--- NOTE | 2020-03-19 19:08 | PT.OTN ---
Current Diagnoses Unspecified urinary incontinence (03/19/20) Physical Therapy Treatment Note PT-OP-A Visit Information Start: 03/13/20 09:42 Freq: Status: Active Protocol: Document 03/19/20 19:03 [facility] (Rec: 03/19/20 19:08 [facility] [id number]) Out-Patient Physical Therapy Visit Information Visit Information Visit Type Treatment Note Visit Start Time 15:15 Visit Stop Time 16:00 Total Visit Minutes 45 Visit Number 2 PT-OP-B Current Condition Start: 03/13/20 09:42 Freq: Status: Active Protocol: Document 03/13/20 11:21 [facility] (Rec: 03/13/20 11:34 [facility] [id number]) Current Condition History of Current Condition Onset Date 8-10 years ago Current Complaints Overactive bladder symtoms worsen overtime History of Current Condition Things have been going on awhile. He goes to bed then two hours later has to wake up to void. He generally wakes at least 4 times per night to void. Sometimes from 5-8 in the am he has to wake up 3 times During the day he doesn 't have too much trouble. As soon as he gets up he notices it more. When he is laying down he gets the urge. The only time he gets leakage is with standing. Hx of Gall bladder surgery 1982. Likes to drink a few beers at night, in the am he drinks coffee and juice. Goes to bed about 10:30 and reads for a hour prior to bed. Pt reports he drinks 2 glasses of water per day in the am then juice 2-3 pm , 5:30 a couple of beers. Pt reports when he voids at night he stands up by the side of the bed to void. past medical history included elevated blood pressure. Treatment Goals Patient/Caregiver Goals Shant reports he would like to reduce his urgency and the number of times he has to void expecially at night Current Functional Impairments (Reported) Functional Limitations- Other frequent urgency to void limits sleeping duration and inturrupts sleep PT-OP-C Subjective Start: 03/13/20 09:42 Freq: Status: Active Protocol: Document 03/19/20 19:03 [facility] (Rec: 03/19/20 19:08 [facility] [id number]) OP-PT Subjective Patient Comments Patient Comments pt reports he has been trying to do his stretches, he has questions on the pelvic floor contractions. PT-OP-F Manual Assessment Start: 03/19/20 18:45 Freq: Status: Active Protocol: Document 03/13/20 18:46 [facility] (Rec: 03/19/20 18:49 [facility] [id number]) Manual Assessments Soft Tissue Assessment Soft Tissue Mobility Assessment There are restrictions in the suprapubic fascia, iliopsoas and quad tightness bilaterally , PT-OP-I Pelvic Floor Start: 03/13/20 09:42 Freq: Status: Active Protocol: Document 03/13/20 18:46 [facility] (Rec: 03/19/20 18:49 [facility] [id number]) Pelvic Floor Assessment Pelvic Clock Pelvic Clock Other with external assessment today Simba has difficulty recruiting his pelvic floor muscles. He tends to perform a valsalva and presses out through his abdominal wall. He lacks endurance holds of more than 3 -4 seconds PT-OP-J Posture/Palpation/Skin Start: 03/13/20 09:42 Freq: Status: Active Protocol: Document 03/13/20 11:15 [facility] (Rec: 03/19/20 18:45 [facility] [id number]) Posture Evaluation Position Standing T-Spine Posture Increased Kyphosis Palpation Assessment Location One Palpation Location suprapubic fascia Palpation Details myofascial restrictions across the suprapubic fascia PT-OP-K Range of Motion Start: 03/19/20 18:45 Freq: Status: Active Protocol: Document 03/13/20 18:46 [facility] (Rec: 03/19/20 18:49 [facility] [id number]) Hip Goniometric Range of Motion Hip Right Hip ROM WFL No Testing Position Supine Extension 5 Left Hip ROM WFL No Extension 5 Hip ROM Limitations Hip ROM Limitations Soft Tissue Tightness Comments tightness in the iliopsoas restricts full hip extension PT-OP-Q Treatments Start: 03/13/20 09:42 Freq: Status: Active Protocol: Document 03/19/20 19:03 [facility] (Rec: 03/19/20 19:08 [facility] [id number]) Therapeutic Exercises Supine Exercises 2 Supine Exercise Name single knee to chest with opp leg straight Reps/Minutes 1 min each side 1 Supine Exercise Name pelvic floor long holds Reps/Minutes 10 second hold time and 10 second relaxation Comments pt needed verbal cues to not hold his breath, 2 sets of 10 per day Prone Exercises 1 Prone Exercise Name prone on elbows stretch for the abdominal wall Reps/Minutes pt to hold 1-2 min Manual Therapy Treatment Soft Tissue Mobilization 1 Body Location soft tissue release of the suprapubic fascia and bladder mobilizations Body Position Supine Self-Care/Home Management Treatment Education Patient Education Home Exercise Program Other Education pt educated on voiding stratagies of sitting to void rather than standing by the edge of bed. To assist with fully voiding and emptying his bladder. Pt was educated in bladder retraining today PT-OP-T Assessment and Plan Start: 03/13/20 09:42 Freq: Status: Active Protocol: Document 03/19/20 19:03 [facility] (Rec: 03/19/20 19:08 [facility] [id number]) Physical Therapy Assessment Assessment Summary Assessment It was difficult for Shant to hear today due to the masks and his limited hearing. We reviewed all his exercises, worked on a seated posture for voiding, began bladder retraining and I started MFR over the bladder. Pt had good tolerance for treatment and felt good about his home program Physical Therapy Plan Frequency and Duration Frequency of Treatment 1x/Week Duration of Treatment 8 Plan of Care Start Date 03/13/20 Plan of Care End Date 05/08/20 Next Visit Focus/Plan Next Note Type Treatment Note Next Visit Plan review bladder retraining, stretches for the anterior hips and pelvis, toileting techniques
--- NOTE | 2020-03-28 18:37 | PT.OTN ---
Current Diagnoses Unspecified urinary incontinence (03/26/20) Physical Therapy Treatment Note PT-OP-A Visit Information Start: 03/13/20 09:42 Freq: Status: Active Protocol: Document 03/26/20 14:35 [facility] (Rec: 03/26/20 15:14 [facility] [id number]) Out-Patient Physical Therapy Visit Information Visit Information Visit Type Treatment Note Visit Start Time 14:30 Visit Stop Time 15:15 Total Visit Minutes 45 Visit Number 3 PT-OP-B Current Condition Start: 03/13/20 09:42 Freq: Status: Active Protocol: Document 03/13/20 11:21 [facility] (Rec: 03/13/20 11:34 [facility] [id number]) Current Condition History of Current Condition Onset Date 8-10 years ago Current Complaints Overactive bladder symtoms worsen overtime History of Current Condition Things have been going on awhile. He goes to bed then two hours later has to wake up to void. He generally wakes at least 4 times per night to void. Sometimes from 5-8 in the am he has to wake up 3 times During the day he doesn 't have too much trouble. As soon as he gets up he notices it more. When he is laying down he gets the urge. The only time he gets leakage is with standing. Hx of Gall bladder surgery 1982. Likes to drink a few beers at night, in the am he drinks coffee and juice. Goes to bed about 10:30 and reads for a hour prior to bed. Pt reports he drinks 2 glasses of water per day in the am then juice 2-3 pm , 5:30 a couple of beers. Pt reports when he voids at night he stands up by the side of the bed to void. past medical history included elevated blood pressure. Treatment Goals Patient/Caregiver Goals Shant reports he would like to reduce his urgency and the number of times he has to void expecially at night Current Functional Impairments (Reported) Functional Limitations- Other frequent urgency to void limits sleeping duration and inturrupts sleep PT-OP-C Subjective Start: 03/13/20 09:42 Freq: Status: Active Protocol: Document 03/26/20 14:35 [facility] (Rec: 03/26/20 15:14 [facility] [id number]) OP-PT Subjective Patient Comments Patient Comments has been keeping a bladder diary. He appears to be going longer after water and goes more so after beer. PT-OP-F Manual Assessment Start: 03/19/20 18:45 Freq: Status: Active Protocol: Document 03/13/20 18:46 [facility] (Rec: 03/19/20 18:49 [facility] [id number]) Manual Assessments Soft Tissue Assessment Soft Tissue Mobility Assessment There are restrictions in the suprapubic fascia, iliopsoas and quad tightness bilaterally , PT-OP-I Pelvic Floor Start: 03/13/20 09:42 Freq: Status: Active Protocol: Document 03/13/20 18:46 [facility] (Rec: 03/19/20 18:49 [facility] [id number]) Pelvic Floor Assessment Pelvic Clock Pelvic Clock Other with external assessment today Simba has difficulty recruiting his pelvic floor muscles. He tends to perform a valsalva and presses out through his abdominal wall. He lacks endurance holds of more than 3 -4 seconds PT-OP-J Posture/Palpation/Skin Start: 03/13/20 09:42 Freq: Status: Active Protocol: Document 03/13/20 11:15 [facility] (Rec: 03/19/20 18:45 [facility] [id number]) Posture Evaluation Position Standing T-Spine Posture Increased Kyphosis Palpation Assessment Location One Palpation Location suprapubic fascia Palpation Details myofascial restrictions across the suprapubic fascia PT-OP-K Range of Motion Start: 03/19/20 18:45 Freq: Status: Active Protocol: Document 03/13/20 18:46 [facility] (Rec: 03/19/20 18:49 [facility] [id number]) Hip Goniometric Range of Motion Hip Right Hip ROM WFL No Testing Position Supine Extension 5 Left Hip ROM WFL No Extension 5 Hip ROM Limitations Hip ROM Limitations Soft Tissue Tightness Comments tightness in the iliopsoas restricts full hip extension PT-OP-Q Treatments Start: 03/13/20 09:42 Freq: Status: Active Protocol: Document 03/26/20 14:35 [facility] (Rec: 03/26/20 15:14 [facility] [id number]) Therapeutic Exercises Supine Exercises 2 Supine Exercise Name single knee to chest with opp leg straight Reps/Minutes 1 min each side 1 Supine Exercise Name pelvic floor long holds Reps/Minutes 10 second hold time and 10 second relaxation Comments pt needed verbal cues to not hold his breath, 2 sets of 10 per day Prone Exercises 2 Prone Exercise Name prone knee bends 1 Prone Exercise Name prone on elbows stretch for the abdominal wall Reps/Minutes pt to hold 1-2 min Manual Therapy Treatment Soft Tissue Mobilization 1 Body Location soft tissue release of the suprapubic fascia and bladder mobilizations Body Position Supine Self-Care/Home Management Treatment Education Patient Education Home Exercise Program Other Education pt educated on voiding stratagies of sitting to void rather than standing by the edge of bed. To assist with fully voiding and emptying his bladder. Pt was educated in bladder retraining today. Talked to Shant about sitting to void at night instead of using a jar a the edge of the bed. PT-OP-T Assessment and Plan Start: 03/13/20 09:42 Freq: Status: Active Protocol: Document 03/26/20 18:36 [facility] (Rec: 03/28/20 18:37 [facility] [id number]) Physical Therapy Assessment Assessment Summary Assessment Shant did better today with pelvic floor isolation with NMES. I added in templates for eccentric control and coordination for him today. He tolerated this well Physical Therapy Plan Frequency and Duration Frequency of Treatment 1x/Week Duration of Treatment 8 Plan of Care Start Date 03/13/20 Plan of Care End Date 05/08/20 Therapeutic Interventions Therapeutic Interventions Home Exercise Program,Manual Therapy,Neuromuscular Re- education,Patient/Caregiver Education,Self-Care/Home Management,Soft Tissue Mobilization,Therapeutic Exercises Next Visit Focus/Plan Next Note Type Treatment Note Next Visit Plan review bladder retraining, stretches for the anterior hips and pelvis, toileting techniques
--- NOTE | 2020-04-09 14:56 | PT.OTN ---
Current Diagnoses Unspecified urinary incontinence (04/09/20) Physical Therapy Treatment Note PT-OP-A Visit Information Start: 03/13/20 09:42 Freq: Status: Active Protocol: Document 04/09/20 14:47 [facility] (Rec: 04/09/20 14:47 [facility] [id number]) Out-Patient Physical Therapy Visit Information Visit Information Visit Type Treatment Note Visit Start Time 13:45 Visit Stop Time 14:30 Total Visit Minutes 45 Visit Number 4 Evaluation Information Evaluation Date 03/13/20 PT-OP-B Current Condition Start: 03/13/20 09:42 Freq: Status: Active Protocol: Document 03/13/20 11:21 [facility] (Rec: 03/13/20 11:34 [facility] [id number]) Current Condition History of Current Condition Onset Date 8-10 years ago Current Complaints Overactive bladder symtoms worsen overtime History of Current Condition Things have been going on awhile. He goes to bed then two hours later has to wake up to void. He generally wakes at least 4 times per night to void. Sometimes from 5-8 in the am he has to wake up 3 times During the day he doesn 't have too much trouble. As soon as he gets up he notices it more. When he is laying down he gets the urge. The only time he gets leakage is with standing. Hx of Gall bladder surgery 1982. Likes to drink a few beers at night, in the am he drinks coffee and juice. Goes to bed about 10:30 and reads for a hour prior to bed. Pt reports he drinks 2 glasses of water per day in the am then juice 2-3 pm , 5:30 a couple of beers. Pt reports when he voids at night he stands up by the side of the bed to void. past medical history included elevated blood pressure. Treatment Goals Patient/Caregiver Goals Ivis reports he would like to reduce his urgency and the number of times he has to void expecially at night Current Functional Impairments (Reported) Functional Limitations- Other frequent urgency to void limits sleeping duration and inturrupts sleep PT-OP-C Subjective Start: 03/13/20 09:42 Freq: Status: Active Protocol: Document 04/09/20 13:50 [facility] (Rec: 04/09/20 14:37 [facility] [id number]) OP-PT Subjective Patient Comments Patient Comments pt reports he feels like he is fully emptying his bladder, he is still experiencing the urgency and more so at night. The only time he gets leakage is with standing. The leakage has been a little better. PT-OP-F Manual Assessment Start: 03/19/20 18:45 Freq: Status: Active Protocol: Document 03/13/20 18:46 [facility] (Rec: 03/19/20 18:49 [facility] [id number]) Manual Assessments Soft Tissue Assessment Soft Tissue Mobility Assessment There are restrictions in the suprapubic fascia, iliopsoas and quad tightness bilaterally , PT-OP-I Pelvic Floor Start: 03/13/20 09:42 Freq: Status: Active Protocol: Document 03/13/20 18:46 [facility] (Rec: 03/19/20 18:49 [facility] [id number]) Pelvic Floor Assessment Pelvic Clock Pelvic Clock Other with external assessment today Simba has difficulty recruiting his pelvic floor muscles. He tends to perform a valsalva and presses out through his abdominal wall. He lacks endurance holds of more than 3 -4 seconds PT-OP-J Posture/Palpation/Skin Start: 03/13/20 09:42 Freq: Status: Active Protocol: Document 03/13/20 11:15 [facility] (Rec: 03/19/20 18:45 [facility] [id number]) Posture Evaluation Position Standing T-Spine Posture Increased Kyphosis Palpation Assessment Location One Palpation Location suprapubic fascia Palpation Details myofascial restrictions across the suprapubic fascia PT-OP-K Range of Motion Start: 03/19/20 18:45 Freq: Status: Active Protocol: Document 03/13/20 18:46 [facility] (Rec: 03/19/20 18:49 [facility] [id number]) Hip Goniometric Range of Motion Hip Right Hip ROM WFL No Testing Position Supine Extension 5 Left Hip ROM WFL No Extension 5 Hip ROM Limitations Hip ROM Limitations Soft Tissue Tightness Comments tightness in the iliopsoas restricts full hip extension PT-OP-Q Treatments Start: 03/13/20 09:42 Freq: Status: Active Protocol: Document 04/09/20 13:50 [facility] (Rec: 04/09/20 14:37 [facility] [id number]) Therapeutic Exercises Supine Exercises diaphragmatic breathing Supine Exercise Name supine diaphragmatic breathing Reps/Minutes 5-10 reps supine iliopsoas stretch Supine Exercise Name supine iliopsoas stretch Reps/Minutes hold 30 seconds per leg 2 Supine Exercise Name single knee to chest with opp leg straight Reps/Minutes 1 min each side Comments needs cues to straighten out the right leg 1 Supine Exercise Name pelvic floor long holds Reps/Minutes 10 second hold time and 10 second relaxation Comments pt needed verbal cues to not hold his breath, 2 sets of 10 per day Prone Exercises 2 Prone Exercise Name prone knee bends 1 Prone Exercise Name prone on elbows stretch for the abdominal wall Reps/Minutes pt to hold 1-2 min Standing Exercises 1 Standing Exercise Name standing warrior 1 Reps/Minutes hold 1-2 minutes Comments left side is tighter Self-Care/Home Management Treatment Education Patient Education Home Exercise Program Other Education bladder retraining, urge deference technique PT-OP-T Assessment and Plan Start: 03/13/20 09:42 Freq: Status: Active Protocol: Document 04/09/20 14:49 [facility] (Rec: 04/09/20 14:54 [facility] [id number]) Physical Therapy Assessment Assessment Summary Assessment ivis was educated in diaphragmatic breathing today as he is still getting the strong urge to void. He notes that at night his mind keeps him awake alot. I talked to him about the millie called the breathing millie to help him with the diaphragmatic breathing at night. Also he is still really tight in his hip flexors expecially on the left side. We reviewed these stretches today. Ivis will work on his exercises and stretches and recheck back in a month Physical Therapy Plan Frequency and Duration Frequency of Treatment 1x/Week Duration of Treatment 8 Plan of Care Start Date 03/13/20 Plan of Care End Date 05/08/20 Next Visit Focus/Plan Next Note Type Treatment Note Next Visit Plan review all stretches and exercises next visit along with breathing techniques
--- NOTE | 2020-05-19 12:43 | PT.OTN ---
Current Diagnoses Unspecified urinary incontinence (05/16/20) Physical Therapy Treatment Note PT-OP-A Visit Information Start: 03/13/20 09:42 Freq: Status: Active Protocol: Document 05/16/20 14:34 [facility] (Rec: 05/16/20 14:52 [facility] [id number]) Out-Patient Physical Therapy Visit Information Visit Information Visit Type Treatment Note Visit Start Time 14:30 Visit Stop Time 15:15 Total Visit Minutes 45 Visit Number 5 PT-OP-B Current Condition Start: 03/13/20 09:42 Freq: Status: Active Protocol: Document 03/13/20 11:21 [facility] (Rec: 03/13/20 11:34 [facility] [id number]) Current Condition History of Current Condition Onset Date 8-10 years ago Current Complaints Overactive bladder symtoms worsen overtime History of Current Condition Things have been going on awhile. He goes to bed then two hours later has to wake up to void. He generally wakes at least 4 times per night to void. Sometimes from 5-8 in the am he has to wake up 3 times During the day he doesn 't have too much trouble. As soon as he gets up he notices it more. When he is laying down he gets the urge. The only time he gets leakage is with standing. Hx of Gall bladder surgery 1982. Likes to drink a few beers at night, in the am he drinks coffee and juice. Goes to bed about 10:30 and reads for a hour prior to bed. Pt reports he drinks 2 glasses of water per day in the am then juice 2-3 pm , 5:30 a couple of beers. Pt reports when he voids at night he stands up by the side of the bed to void. past medical history included elevated blood pressure. Treatment Goals Patient/Caregiver Goals Shant reports he would like to reduce his urgency and the number of times he has to void expecially at night Current Functional Impairments (Reported) Functional Limitations- Other frequent urgency to void limits sleeping duration and inturrupts sleep PT-OP-C Subjective Start: 03/13/20 09:42 Freq: Status: Active Protocol: Document 05/16/20 14:34 [facility] (Rec: 05/16/20 14:52 [facility] [id number]) OP-PT Subjective Patient Comments Patient Comments Shant reports he has not had any leaking/accidents at all. He is still experiencing urgency at night. During the night he is still waking up a few times to void. He is still drinking coffee and orange juice in the am. As the morning goes on the urgency increases. PT-OP-F Manual Assessment Start: 03/19/20 18:45 Freq: Status: Active Protocol: Document 03/13/20 18:46 [facility] (Rec: 03/19/20 18:49 [facility] [id number]) Manual Assessments Soft Tissue Assessment Soft Tissue Mobility Assessment There are restrictions in the suprapubic fascia, iliopsoas and quad tightness bilaterally , PT-OP-I Pelvic Floor Start: 03/13/20 09:42 Freq: Status: Active Protocol: Document 03/13/20 18:46 [facility] (Rec: 03/19/20 18:49 [facility] [id number]) Pelvic Floor Assessment Pelvic Clock Pelvic Clock Other with external assessment today Simba has difficulty recruiting his pelvic floor muscles. He tends to perform a valsalva and presses out through his abdominal wall. He lacks endurance holds of more than 3 -4 seconds PT-OP-J Posture/Palpation/Skin Start: 03/13/20 09:42 Freq: Status: Active Protocol: Document 03/13/20 11:15 [facility] (Rec: 03/19/20 18:45 [facility] [id number]) Posture Evaluation Position Standing T-Spine Posture Increased Kyphosis Palpation Assessment Location One Palpation Location suprapubic fascia Palpation Details myofascial restrictions across the suprapubic fascia PT-OP-K Range of Motion Start: 03/19/20 18:45 Freq: Status: Active Protocol: Document 03/13/20 18:46 [facility] (Rec: 03/19/20 18:49 [facility] [id number]) Hip Goniometric Range of Motion Hip Right Hip ROM WFL No Testing Position Supine Extension 5 Left Hip ROM WFL No Extension 5 Hip ROM Limitations Hip ROM Limitations Soft Tissue Tightness Comments tightness in the iliopsoas restricts full hip extension PT-OP-Q Treatments Start: 03/13/20 09:42 Freq: Status: Active Protocol: Document 05/16/20 14:34 [facility] (Rec: 05/16/20 14:52 [facility] [id number]) Therapeutic Exercises Supine Exercises 3 Supine Exercise Name quick contractions Reps/Minutes 10 reps x 2 seconds each diaphragmatic breathing Supine Exercise Name supine diaphragmatic breathing Reps/Minutes 5-10 reps supine iliopsoas stretch Supine Exercise Name supine iliopsoas stretch Reps/Minutes hold 30 seconds per leg 2 Supine Exercise Name single knee to chest with opp leg straight Reps/Minutes 1 min each side Comments needs cues to straighten out the right leg 1 Supine Exercise Name pelvic floor long holds Reps/Minutes 10 second hold time and 10 second relaxation Comments pt needed verbal cues to not hold his breath, 2 sets of 10 per day Prone Exercises 2 Prone Exercise Name prone knee bends 1 Prone Exercise Name prone on elbows stretch for the abdominal wall Reps/Minutes pt to hold 1-2 min Self-Care/Home Management Treatment Education Patient Education Home Exercise Program Other Education bladder retraining, urge deference technique reviewed PT-OP-T Assessment and Plan Start: 03/13/20 09:42 Freq: Status: Active Protocol: Document 05/16/20 14:34 [facility] (Rec: 05/16/20 14:52 [facility] [id number]) Physical Therapy Assessment Goals Four Impairment Decreased ability to facilitate the pelvic floor and poor endurance Fdc Goal (LTG) Shant is able to sustain a pelvic floor contraction for 10 seconds in the supine position and 5 seconds in a standing position Good progress LTG Duration 8 weeks Three Impairment Pt has a history of drinking multiple bladder irritants during the day Short Term Goal (STG) Shant is educated on bladder irritants and is given a bladder diary to track his daily voids/leaks GOAL MET STG Duration 3 weeks Two Impairment Tightness of the iliopsoas and anterior abdominal wall Short Term Goal (STG) Shant is educated on stetches for the anterior hips and abdominal wall to decrease any tissue tightness surrounding the bladder than can interfere with full expansion and filling. GOAL MET STG Duration 4 weeks One Impairment urinary urgency and nocturia walking up at least 4 xms at night to void Short Term Goal (STG) Shant is instructed in bladder retraining and urge defernce technique GOAL MET STG Duration 3 weeks Fdc Goal (LTG) Shant is able to void every 2-3 hours during the day and he has decreased his night time voiding amount to waking 1-2 times per night Shant reports he has had days when he is out of the house where he does not have the urgency. He still is experiencing night time urgency LTG Duration 8 weeks Progress Towards Goals Progress Towards Goals Progressing Toward Goals Assessment Summary Assessment Shant has made improvements in that he is not experiencing leaking with his urgency. I have worked with him on bladder retraining, urge deference technique, pelvic floor strengthening and stretches to help him relax his hips and pelvic floor to assist with fully emptying his bladder. He reports his symptoms are better when he is out of the house and not thinking about his bladder. I feel he still needs to work on bladder retraining and extend his time between voids during the day to help his bladder fill longer at night. Shant feels independent with his home program and will continue working on bladder retraining as well as his exercises. He will be discharged from PT at this time. Physical Therapy Plan Therapeutic Interventions Therapeutic Interventions Home Exercise Program,Manual Therapy,Neuromuscular Re- education,Patient/Caregiver Education,Self-Care/Home Management,Soft Tissue Mobilization,Therapeutic Exercises Discharge Physical Therapy Discharge Reasons Patient Request Discharge Comments The patient has been seen for 5 visits in PT working towards his goals. He would like to work on his exercises independently at this time. He will be DC from PT
== END 2020-05-20 13:29 ==
LOC: PHYS 14:30
PROVIDERS: Family Provider Internal Medicine; PCP Internal Medicine; Referring Provider Specialist; Visit Provider Specialist
DX: R32 Unspecified urinary incontinence (principal)
CPT/HCPCS: 97110; 97112; 97140; 97161; 97535

== ENCOUNTER 2020-09-09 18:23 | Emergency (ER) | payer MEDICARE, OTHER, SELFPAY ==
[2020-09-09 19:04] VITALS: BP 155/72; PULSE 80; RESP 16; TEMP 36.6; O2SAT 98; BMI 25.8
[2020-09-09] MEDS: LIDO 1%/SOD BICARB 8.4% (10ML) 10 ML SYRINGE INJ (20:21)
[2020-09-09] MEDS: TET,DIPH,PERTUSS(ACELL),VAC/PF 0.5 ML SYRINGE IM (20:21)
--- NOTE | 2020-09-09 20:53 | ED.GENADULT ---
HPI - General Adult General Chief complaint: Extremity Injury, Upper Stated complaint: LEFT HAND LACERATION Time Seen by Provider: 09/09/20 20:49 Source: patient Mode of arrival: Ambulatory Limitations: no limitations History of Present Illness HPI narrative: 84-year-old male here for evaluation of a cut to his left hand. He states that he cut it on a piece of metal. He does not know when his last tetanus shot was. He has no tingling in his finger. Covered with a bandage in given the emergency department for evaluation. Is not on blood thinners. Related Data Home Medications Medication Instructions Recorded Confirmed carvedilol 6.25 mg tablet 6.25 mg PO BID tab 02/07/18 07/10/20 chlorthalidone 25 mg tablet 25 mg PO DAILY 02/07/18 07/10/20 lisinopril 40 mg tablet 40 mg PO DAILY 02/07/18 07/10/20 pravastatin 20 mg tablet 20 mg PO BEDTIME 02/07/18 07/10/20 aspirin 1 tab PO DAILY 06/13/18 07/10/20 fluticasone propionate 2 spray INTRANASAL DAILY 06/13/18 07/10/20 omeprazole 20 mg capsule,delayed 20 mg PO DAILY 07/10/20 07/10/20 release Previous Rx's Medication Instructions Recorded tolterodine 2 mg capsule,extended 2 mg PO Q24H #180 cap 07/18/20 release 24 hr Allergies Allergy/AdvReac Type Severity Reaction Status Date / Time No Known Drug Allergies Allergy Verified 07/10/20 14:20 Review of Systems Musculoskeletal Musculoskeletal: Denies tingling Comments: No hand pain Integumentary/Breasts Comments: Cut to the back of the left hand Neurologic Neurologic: Denies tingling Hematologic/Lymphatic Hematologic/Lymphatic: Denies easy bleeding and Denies easy bruising Patient History Medical History BPH w urinary obs/LUTS Hyperlipidemia Hypertension Urge incontinence Surgical History History of cholecystectomy No pertinent past surgical history Social History Smoking Status: Former smoker Smoking Status: Former smoker alcohol intake frequency: 0-2 drinks per day Alcohol type: beer Substance Use Type: does not use Exam Initial Vital Signs Initial Vital Signs: Vital Signs Temperature 98 F 09/09/20 19:04 Pulse Rate 80 09/09/20 19:04 Respiratory Rate 16 09/09/20 19:04 Blood Pressure 155/72 H 09/09/20 19:04 Pulse Oximetry 98 09/09/20 19:04 Cardio Pulses: radial pulses present on the left Skin Other: Patient with a 4 cm ?C? shaped laceration to the back of the left hand over the MCP joint of the index finger. Neuro Sensory Exam: no sensory deficits noted Extrem Other: The cut his directly over the MCP joint of the left index finger. A evaluation of the cut during full flexion extension of the MCP joint does not show any tendon involvement nor joint involvement. He has good strength both flexion extension actively not against resistance and with resistance. Psych Appearance: grossly normal and well kempt Procedures Laceration Repair Laceration 1: Site: hand Side (If applicable): left Size (cm): 4 Description: clean Depth: simple, single layer Local Anesthetic: lidocaine 1% and with bicarb Amount of anesthesia used (mL): 4 Pre-repair: wound explored and deep structures intact Skin layer closed with: nylon Size (cm): 3-0 Number of sutures: 5 Technique: simple, interrupted Course Orders Ordered: Discontinued Medications Bacitracin (Bacitracin Oint 0.9 Gm Pckt) 1 applic TOP NOW ONE Stop: 09/09/20 20:59 Last Admin: 09/09/20 21:04 Dose: 1 applic Documented by: RMARTIN Diphtheria/Tetanus/Acell Pertussis (Tet,Diph,Pertuss(Acell),Vac/Pf 0.5 Ml Syringe) 0.5 ml IM .ONCE ONE Stop: 09/09/20 20:16 Last Admin: 09/09/20 20:21 Dose: 0.5 ml Documented by: RMARTIN Lidocaine/Sodium Bicarbonate (Lido 1%/Sod Bicarb 8.4% (10ml) 10 Ml Syringe) 10 ml INJ NOW ONE Stop: 09/09/20 20:16 Last Admin: 09/09/20 20:21 Dose: 10 ml Documented by: RMARTIN Vital Signs Vital signs: Vital Signs - 8 hr 09/09/20 21:11 Pulse Rate 69 Respiratory Rate 16 Blood Pressure 160/85 H Pulse Oximetry 98 Medical Decision Making [facility] Narrative Medical decision making narrative: His tetanus was updated today in the ER. He is neurovascularly intact. There appears to be no indication for joint involvement or tendon involvement. Laceration was closed as described above. He was given return precautions follow up instructions a care instructions. He expressed understanding and agreement. Discharge Plan Departure Patient Disposition: Home Clinical Impression: Laceration Instructions: DI for Laceration Repair Activity Restrictions/Additional Instructions: Recommend you contact the health human resources assistant manager [phone]. This individual can help you establish a new primary provider. The stitches on your left hand need to be removed in 7-10 days. You can return to the walk-in clinic for this. After 24 hours you can shower like normal. He can use soap and water however do not recommend that you soak your hand in any substance until the stitches are removed. Return to the emergency department for any new or worsening symptoms. Prescriptions: No Action carvedilol 6.25 mg tablet 6.25 mg PO BID RF: 0 chlorthalidone 25 mg tablet 25 mg PO DAILY RF: 0 pravastatin 20 mg tablet 20 mg PO BEDTIME RF: 0 lisinopril 40 mg tablet 40 mg PO DAILY RF: 0 tolterodine [Detrol LA] 2 mg capsule,extended release 24hr 2 mg PO Q24H Qty: 180 RF: 3 aspirin 81 mg tablet,delayed release (DR/EC) 1 tab PO DAILY RF: 0 fluticasone propionate 50 mcg/actuation spray,suspension 2 spray Intranasal DAILY RF: 0 omeprazole 20 mg capsule,delayed release(DR/EC) 20 mg PO DAILY RF: 0
[2020-09-09] MEDS: BACITRACIN OINT 0.9 GM PCKT 1 APPLIC TOP (21:04)
[2020-09-09 21:11] VITALS: BP 160/85; PULSE 69; RESP 16; O2SAT 98
== END 2020-09-09 21:12 | disposition home or self-care (01) ==
PROVIDERS: Emergency Provider Emergency Medicine
DX: S61.412A Laceration without foreign body of left hand, initial encounter (principal); W45.8XXA Other foreign body or object entering through skin, initial encounter; I10 Essential (primary) hypertension; E78.5 Hyperlipidemia, unspecified; Z23 Encounter for immunization
CPT/HCPCS: 12002; 90471; 99282; 99283; 90715

== ENCOUNTER → 2020-11-12 09:54 | Outpatient (CLI) | payer MEDICARE, OTHER, SELFPAY ==
[2020-11-12 11:29] LABS: Alanine Aminotransferase 11 IU/L (<50); Albumin 4.2 g/dL (3.5-5.0); Albumin Globulin Ratio 1.5 (1.0-2.8); Alkaline Phosphatase 79 U/L (38-126); Aspartate Aminotransferase 26 IU/L (17-59); BUN Creatinine Ratio 23.8 (6-22); Bilirubin Total 0.7 mg/dL (0.2-1.3); Blood Urea Nitrogen 30 mg/dL (9-20); Calcium 9.3 mg/dL (8.4-10.2); Carbon Dioxide 32 mmol/L (22-32); Chloride 103 mmol/L (98-107); Cholesterol 149 mg/dL (140-199); Estimated Glomerular Filt Rate 54.7 mL/min (>60); Globulin 2.8 g/dL (1.7-4.1); Glucose 98 mg/dL (80-110); HDL Cholesterol 21 mg/dL (40-60); HEMOLYSIS < 15 (0-50); LDL Cholesterol Calculated 96 mg/dL (<100); Potassium 5.2 mmol/L (3.4-5.1); Sodium 137 mmol/L (137-145); Triglycerides 161 mg/dL (35-150)
== END ==
PROVIDERS: PCP Internal Medicine; Referring Provider Internal Medicine; Visit Provider Internal Medicine
DX: E78.2 Mixed hyperlipidemia (principal); I10 Essential (primary) hypertension
CPT/HCPCS: 36415; 80053; 80061

== ENCOUNTER → 2021-07-23 10:56 | Outpatient (CLI) | payer MEDICARE, OTHER, SELFPAY ==
[2021-07-23 12:33] LABS: COVID19 -Nasal RAPID Negative (Negative)
== END ==
PROVIDERS: PCP Internal Medicine; Visit Provider Nurse Practitioner Family
DX: Z20.822 Contact with and (suspected) exposure to COVID-19 (principal)
CPT/HCPCS: 87635; C9803

== ENCOUNTER 2021-07-24 08:44 | Day surgery (SDC) | payer MEDICARE, OTHER, SELFPAY ==
[2021-07-17 10:40] VITALS: BMI 27.0
[2021-07-24] MEDS: LACTATED RINGERS 1,000 ML 42 ML IV (09:00)
[2021-07-24 09:07] VITALS: BP 156/93; PULSE 89; RESP 15; TEMP 36.5; O2SAT 100; BMI 27.0
--- NOTE | 2021-07-24 10:50 | SUR.OPER ---
Supine on padded OR bed, head on pillow. Right arm secured on padded arm table at <90 degrees abduction. Left arm positioned on padded armboard at less than 90 degrees abduction. legs uncrossed, safety belt at thigh, tape over blanket over lower legs.
[2021-07-24] MEDS: CLINDAMYCIN 900 MG/50 ML PIGGYBACK 50 MG IV (11:00)
[2021-07-24] MEDS: BUPIVACAINE 0.5% (PF) VIAL 30 ML INJ (11:23)
[2021-07-24] MEDS: EPINEPHrine 1 MG/ML 0.15 MG INJ (11:24)
--- NOTE | 2021-07-24 11:35 | PM.PREOP ---
Pre-operative Note Interval Note History & Physical reviewed/Exam performed by Physician: Yes Changes to H&P: No
[2021-07-24 11:40] VITALS: BP 119/76; PULSE 63; RESP 16; TEMP 36.7; O2SAT 97
--- NOTE | 2021-07-24 11:40 | PM.OP.1 ---
Operative Date/Time/Diagnoses Date of procedure: 07/24/21 Time of procedure: 11:00 Pre-op diagnosis: Right carpal tunnel Post-op diagnosis: same Procedure & Clinicians Procedure: Right carpal tunnel release Same procedure as scheduled: Yes Indications: Right carpal tunnel Surgeon: Bg Osorio Click Yes if Unassisted: Yes Operative Notes Findings: Compression of the median nerve at the carpal tunnel Closure Type: primary Estimated Blood Loss (mL): 0 Blood products transfused: none Tourniquet time (min): 19 Procedure in detail: On date of service, the patient was met in the holding area. Patients operative site was signed and witnessed by the OR staff. The surgery was once again discussed with the patient, and any remaining questions they had were answered fully. Patient was taken back to the operating theater and placed on the operating table in a supine position. Great care was taken to ensure that all bony prominences were carefully padded. A well-padded tourniquet was placed up along the upper extremity. A timeout was performed to verify patient's name, procedure, and operative site. The arm was then prepped and draped in the normal sterile fashion. A 15 blade was used to incise through skin In the center of the palm. Pickups and tenotomy scissors were used to dissect down until the palmar fascia was visualized. The palmar fascia was then sharply incised using a 15 blade. This gave us good visualization of the carpal ligament. A small opening was made into the carpal ligament, and a curved hemostat was placed into that opening. A 15 blade was then used to sharply incise the carpal ligament with the structures beneath being protected by the hemostat. Pickups and Metzenbaum scissors were used to complete the decompression both distally and proximally. This provided a complete decompression of the median nerve. The wound was then irrigated and closed with nylon. The hand was then cleaned, dried, and dressed. Patient was taken to the PACU in stable condition. Complications: none Post-operative Condition: stable Disposition: PACU Plan for aftercare: Patient will follow our postoperative protocol for carpal tunnel release
[2021-07-24 11:51] VITALS: BP 124/78; PULSE 67; RESP 16; O2SAT 98
[2021-07-24 12:05] VITALS: BP 141/77; PULSE 66; RESP 16; O2SAT 98
== END 2021-07-24 12:20 | disposition home or self-care (01) ==
PROVIDERS: PCP Internal Medicine; Referring Provider Orthopaedic Surgery; Visit Provider Orthopaedic Surgery
PROC: (CPT 64721; principal; 2021-07-24 10:45)
DX: G56.01 Carpal tunnel syndrome, right upper limb (principal); I10 Essential (primary) hypertension; E78.5 Hyperlipidemia, unspecified; N40.0 Benign prostatic hyperplasia without lower urinary tract symptoms
CPT/HCPCS: 64721; J0171; J2250; J2704

== ENCOUNTER 2021-09-29 13:29 | Emergency (ER) | payer MEDICARE, OTHER, SELFPAY ==
[2021-09-29 13:31] VITALS: BP 178/85; PULSE 81; RESP 20; TEMP 36.6; O2SAT 97
--- NOTE | 2021-09-29 14:09 | ED.GIBLEED ---
HPI - GI Bleed <Grover Olguin PA-C - Last Filed: 09/29/21 19:41> General Chief complaint: GI Bleed Stated complaint: Black Stools, Possible Internal Bleeding Time Seen by Provider: 09/29/21 13:45 Source: patient Mode of arrival: Ambulatory History of Present Illness HPI Narrative: Patient is an 85-year-old male presenting to the emergency department today for an evaluation black stools. Patient states that he began to experience black stools yesterday, noting that his 2 bowel movements today or both black as well. He notes that his 2nd bowel movement of the day was more loose than normal. Of note, patient states that he had similar symptoms a little over week ago that resolved on their own. Additionally, patient states that he last took a dose of Pepto-Bismol approximately 3 days ago. Associated mild epigastric abdominal pain reported, patient states that pain seems to be slightly worse after eating. Patient denies fever, chills, chest pain, cough, shortness of breath, nausea, vomiting, diarrhea, dysuria, hematuria, dizziness, changes in vision, changes in hearing, or any other concerning symptoms. No further concerns are voiced at this time. Related Data Home Medications Medication Instructions Recorded Confirmed fluticasone propionate 50 2 spray INTRANASAL DAILY PRN 07/24/21 09/15/21 mcg/actuation nasal spray,suspension Previous Rx's Medication Instructions Recorded aspirin 81 mg tablet,delayed 81 mg PO DAILY #90 tab 12/04/20 release lisinopril 40 mg tablet 40 mg PO DAILY #90 tab 12/04/20 carvedilol 6.25 mg tablet 6.25 mg PO BID #180 tab 08/11/21 pravastatin 20 mg tablet 20 mg PO BEDTIME #90 tab 08/11/21 tolterodine 2 mg capsule,extended 2 - 4 mg PO BEDTIME #180 cap 08/20/21 release 24 hr (Detrol LA) trazodone 50 mg tablet 50 mg PO BEDTIME PRN #90 tab 08/20/21 Allergies Allergy/AdvReac Type Severity Reaction Status Date / Time cephalexin AdvReac Severe Anaphylaxis Verified 09/15/21 13:33 Review of Systems <Grover Olguin PA-C - Last Filed: 09/29/21 19:41> Constitutional Constitutional: Denies chills, Denies fatigue, Denies fever(s), Denies frequent falls, Denies lethargy and Denies weakness Eyes Eyes: Denies loss of vision ENT Ears, Nose, Mouth, and Throat: Denies dizziness and Denies neck pain Cardiovascular Cardiovascular: Denies chest pain, Denies irregular heart rhythm, Denies lightheadedness, Denies palpitations, Denies dyspnea, Denies dyspnea on exertion and Denies orthopnea Respiratory Respiratory: Denies cough, Denies dyspnea, Denies dyspnea on exertion and Denies wheezing Gastrointestinal Gastrointestinal: Reports abdominal pain, Denies change in bowel habits, Denies diarrhea, Denies nausea, Denies vomiting and Reports other (Black stools) Genitourinary Genitourinary: Denies hematuria, Denies flank pain, Denies urinary incontinence and Denies urinary urgency Musculoskeletal Musculoskeletal: Denies back pain, Denies muscle weakness, Denies neck pain, Denies numbness and Denies tingling Integumentary/Breasts Skin/Breast: Denies pruritus, Denies erythema, Denies rash and Denies wounds Neurologic Neurologic: Denies behavioral changes, Denies confusion, Denies dizziness, Denies frequent falls, Denies loss of vision, Denies numbness, Denies tingling and Denies weakness Psychiatric Psychiatric: Denies behavioral changes and Denies confusion Endocrine Endocrine: Denies fatigue and Denies palpitations Allergic/Immunologic Allergic/Immunologic: Denies wheezing Patient History <Grover Olguin PA-C - Last Filed: 09/29/21 19:41> Medical History BPH w urinary obs/LUTS Carpal tunnel syndrome Chronic gout (~2009) Chronic renal failure, stage 3a Essential (primary) hypertension (~1984) Gout (~2008) Hearing loss (~1994) History of urinary incontinence (~2009) Laceration of left hand (~09/09/20) Mixed hyperlipidemia Osteoarthritis of left knee Tinnitus (~1979) Urge incontinence (~2009) Surgical History Anesthesia History of carpal tunnel surgery of right wrist History of cholecystectomy (~1984) S/P tonsillectomy and adenoidectomy Family History Father Stroke Mother History of heart disease Brother Cancer Daughter Cancer Social History household members: family Smoking Status: Former smoker alcohol intake: current Smoking Status: Former smoker alcohol intake frequency: 0-2 drinks per day Alcohol type: beer Substance Use Type: does not use Exam <Grover Olguin PA-C - Last Filed: 09/29/21 19:41> Narrative Exam Narrative: GENERAL: 85 year old patient appears stated age. Well-developed patient, in no acute distress. HEAD: Atraumatic. Normocephalic. EYES: Pupils equal round and reactive. Extraocular motions intact. No scleral icterus. No injection or drainage. ENT: Nose without bleeding, purulent drainage. Throat without erythema, tonsillar hypertrophy or exudate. Airway patent. NECK: Trachea midline. Non tender CARDIOVASCULAR: Regular rate and rhythm without murmurs, gallops, or rubs. RESPIRATORY: Clear to auscultation. Breath sounds equal bilaterally. No wheezes, rales, or rhonchi. GASTROINTESTINAL: Abdomen soft, non-tender, nondistended. Guaiac negative. EXTREMITIES: No edema or joint tenderness. BACK: Nontender without deformity or crepitance. No flank tenderness. NEURO: AOx3. SKIN: No rash or erythema of visible areas Initial Vital Signs Initial Vital Signs: Vital Signs Temperature 97.9 F 09/29/21 13:31 Pulse Rate 81 09/29/21 13:31 Respiratory Rate 20 09/29/21 13:31 Blood Pressure 178/85 H 09/29/21 13:31 Pulse Oximetry 97 09/29/21 13:31 <Lindy Suarez DO - Last Filed: 09/30/21 07:15> Initial Vital Signs Initial Vital Signs: Vital Signs Temperature 97.9 F 09/29/21 13:31 Pulse Rate 81 09/29/21 13:31 Respiratory Rate 20 09/29/21 13:31 Blood Pressure 178/85 H 09/29/21 13:31 Pulse Oximetry 97 09/29/21 13:31 Course <Grover Olguin PA-C - Last Filed: 09/29/21 19:41> Course Course Narrative: CBC, CMP, lipase, type and screen ordered. Guaiac-negative stool. Orders Ordered: ED Orders 09/29/21 13:55 Complete Blood Count AUTO DIFF Stat Comprehensive Metabolic Panel Stat Lipase Stat Type and Screen Stat Vital Signs Vital signs: Vital Signs - 8 hr 09/29/21 13:31 09/29/21 15:03 Temperature 97.9 F Pulse Rate 81 71 Respiratory Rate 20 16 Blood Pressure 178/85 H 172/79 H Pulse Oximetry 97 97 <Lindy Suarez DO - Last Filed: 09/30/21 07:15> Orders Ordered: ED Orders 09/29/21 13:55 Complete Blood Count AUTO DIFF Stat Comprehensive Metabolic Panel Stat Lipase Stat Type and Screen Stat Vital Signs Vital signs: Vital Signs - 8 hr 09/29/21 13:31 09/29/21 15:03 Temperature 97.9 F Pulse Rate 81 71 Respiratory Rate 20 16 Blood Pressure 178/85 H 172/79 H Pulse Oximetry 97 97 MDM - GI Bleed <Grover Olguin PA-C - Last Filed: 09/29/21 19:41> Lab Data Result diagrams: 09/29/21 13:55 09/29/21 13:55 Labs: Lab Results 09/29/21 09/29/21 09/29/21 Range/Units 13:55 13:55 13:55 WBC 6.3 (4.5-11.0) X10^3/uL RBC 4.86 (4.5-5.9) X10^6/uL Hgb 15.3 (13.5-17.5) g/dL Hct 45.2 (41-53) % MCV 92.9 (80-100) fL MCH 31.5 (26-34) PG MCHC 33.9 (30-36) % RDW 13.2 (11.6-14.8) % Plt Count 181 (150-400) X10^3/uL Neut % (Auto) 73.2 (50-75) % Lymph % (Auto) 16.3 L (25-40) % Platte % (Auto) 7.0 (3-14) % Eos % (Auto) 2.8 (2-4) % Baso % (Auto) 0.7 (0-2) % Neut # (Auto) 4600 (6512-7727) /uL Lymph # (Auto) 1000 L (3729-9939) /uL Platte # (Auto) 400 (0-900) /uL Eos # (Auto) 200 (0-450) /uL Baso # (Auto) 0 (0-100) /uL Sodium 139 (137-145) mmol/L Potassium 4.8 (3.4-5.1) mmol/L Chloride 102 (98-107) mmol/L Carbon Dioxide 31 (22-32) mmol/L BUN 17 (9-20) mg/dL Creatinine 0.97 (0.66-1.25) mg/dL Estimated GFR > 60.0 (>60) mL/min BUN/Creatinine Ratio 17.5 (6-22) Glucose 92 (80-110) mg/dL Calcium 9.5 (8.4-10.2) mg/dL Total Bilirubin 0.9 (0.2-1.3) mg/dL AST 29 (17-59) IU/L ALT 14 (<50) IU/L Alkaline Phosphatase 62 (38-126) U/L Total Protein 7.4 (6.3-8.2) g/dL Albumin 4.5 (3.5-5.0) g/dL Globulin 2.9 (1.7-4.1) g/dL Albumin/Globulin Ratio 1.6 (1.0-2.8) Lipase (23-300) U/L Blood Type O Positive Antibody Screen Negative 09/29/21 Range/Units 13:55 WBC (4.5-11.0) X10^3/uL RBC (4.5-5.9) X10^6/uL Hgb (13.5-17.5) g/dL Hct (41-53) % MCV (80-100) fL MCH (26-34) PG MCHC (30-36) % RDW (11.6-14.8) % Plt Count (150-400) X10^3/uL Neut % (Auto) (50-75) % Lymph % (Auto) (25-40) % Platte % (Auto) (3-14) % Eos % (Auto) (2-4) % Baso % (Auto) (0-2) % Neut # (Auto) (1570-5718) /uL Lymph # (Auto) (4287-8312) /uL Platte # (Auto) (0-900) /uL Eos # (Auto) (0-450) /uL Baso # (Auto) (0-100) /uL Sodium (137-145) mmol/L Potassium (3.4-5.1) mmol/L Chloride (98-107) mmol/L Carbon Dioxide (22-32) mmol/L BUN (9-20) mg/dL Creatinine (0.66-1.25) mg/dL Estimated GFR (>60) mL/min BUN/Creatinine Ratio (6-22) Glucose (80-110) mg/dL Calcium (8.4-10.2) mg/dL Total Bilirubin (0.2-1.3) mg/dL AST (17-59) IU/L ALT (<50) IU/L Alkaline Phosphatase (38-126) U/L Total Protein (6.3-8.2) g/dL Albumin (3.5-5.0) g/dL Globulin (1.7-4.1) g/dL Albumin/Globulin Ratio (1.0-2.8) Lipase 75 (23-300) U/L Blood Type Antibody Screen MDM Narrative Medical decision making narrative: To consider gastric ulcer versus duodenal ulcer versus diverticulitis versus diverticulosis versus esophageal varices versus is constipation versus hemorrhoids. Overall physical examination and history wrist during. Discussed results of lab work with patient informed him that stool guaiac negative. Informed the patient that his black stools may be associated with Pepto-Bismol use. I recommended the patient follow-up with his primary care provider for the earliest available appointment for further evaluation. Additionally, patient's vital signs remained stable throughout his time in the emergency department today. Strict return precautions were discussed with the patient prior to discharge. At this time patient is stable and ready for discharge. <Lindy Suarez, DO - Last Filed: 09/30/21 07:15> Lab Data Labs: Lab Results 09/29/21 09/29/21 09/29/21 Range/Units 13:55 13:55 13:55 WBC 6.3 (4.5-11.0) X10^3/uL RBC 4.86 (4.5-5.9) X10^6/uL Hgb 15.3 (13.5-17.5) g/dL Hct 45.2 (41-53) % MCV 92.9 (80-100) fL MCH 31.5 (26-34) PG MCHC 33.9 (30-36) % RDW 13.2 (11.6-14.8) % Plt Count 181 (150-400) X10^3/uL Neut % (Auto) 73.2 (50-75) % Lymph % (Auto) 16.3 L (25-40) % Platte % (Auto) 7.0 (3-14) % Eos % (Auto) 2.8 (2-4) % Baso % (Auto) 0.7 (0-2) % Neut # (Auto) 4600 (8016-4137) /uL Lymph # (Auto) 1000 L (0728-3168) /uL Platte # (Auto) 400 (0-900) /uL Eos # (Auto) 200 (0-450) /uL Baso # (Auto) 0 (0-100) /uL Sodium 139 (137-145) mmol/L Potassium 4.8 (3.4-5.1) mmol/L Chloride 102 (98-107) mmol/L Carbon Dioxide 31 (22-32) mmol/L BUN 17 (9-20) mg/dL Creatinine 0.97 (0.66-1.25) mg/dL Estimated GFR > 60.0 (>60) mL/min BUN/Creatinine Ratio 17.5 (6-22) Glucose 92 (80-110) mg/dL Calcium 9.5 (8.4-10.2) mg/dL Total Bilirubin 0.9 (0.2-1.3) mg/dL AST 29 (17-59) IU/L ALT 14 (<50) IU/L Alkaline Phosphatase 62 (38-126) U/L Total Protein 7.4 (6.3-8.2) g/dL Albumin 4.5 (3.5-5.0) g/dL Globulin 2.9 (1.7-4.1) g/dL Albumin/Globulin Ratio 1.6 (1.0-2.8) Lipase (23-300) U/L Blood Type O Positive Antibody Screen Negative 09/29/21 Range/Units 13:55 WBC (4.5-11.0) X10^3/uL RBC (4.5-5.9) X10^6/uL Hgb (13.5-17.5) g/dL Hct (41-53) % MCV (80-100) fL MCH (26-34) PG MCHC (30-36) % RDW (11.6-14.8) % Plt Count (150-400) X10^3/uL Neut % (Auto) (50-75) % Lymph % (Auto) (25-40) % Platte % (Auto) (3-14) % Eos % (Auto) (2-4) % Baso % (Auto) (0-2) % Neut # (Auto) (3336-4771) /uL Lymph # (Auto) (4488-1841) /uL Platte # (Auto) (0-900) /uL Eos # (Auto) (0-450) /uL Baso # (Auto) (0-100) /uL Sodium (137-145) mmol/L Potassium (3.4-5.1) mmol/L Chloride (98-107) mmol/L Carbon Dioxide (22-32) mmol/L BUN (9-20) mg/dL Creatinine (0.66-1.25) mg/dL Estimated GFR (>60) mL/min BUN/Creatinine Ratio (6-22) Glucose (80-110) mg/dL Calcium (8.4-10.2) mg/dL Total Bilirubin (0.2-1.3) mg/dL AST (17-59) IU/L ALT (<50) IU/L Alkaline Phosphatase (38-126) U/L Total Protein (6.3-8.2) g/dL Albumin (3.5-5.0) g/dL Globulin (1.7-4.1) g/dL Albumin/Globulin Ratio (1.0-2.8) Lipase 75 (23-300) U/L Blood Type Antibody Screen Discharge Plan Departure Patient Disposition: Home Clinical Impression: Abdominal pain, Stool color black Instructions: DI for Abdominal Pain-Adult Activity Restrictions/Additional Instructions: *You have been diagnosed with abdominal pain, stool color black *What to do: *Please continue to take your regular medications as directed. [ ] New medication prescriptions sent to your pharmacy: [ ] [ ] New medication written as a paper prescription [X] No new medications given Physical examination and lab work in the emergency department today were reassuring. We were not able to locate any signs of acute bleeding. I recommend following up with the primary care provider within the next 2-3 days for further evaluation. Do not has day to return to the emergency department if you experience worsening abdominal pain, increased blood in your stool, dizziness/lightheadedness, or any other concerning symptoms. *Please follow up with your primary care provider in 2-3 days, call for an appointment. Let them know you were seen in the Emergency Department and that we ask that you be seen in follow up. We will electronically transmit a record of today's note if your PCP is in our system *If you do not have a primary care provider please contact the [facility] Resource line at [phone]. They will ask some questions about your medical history and help get you set up with a doctor in the community. *Return to Emergency Department if you should have any new, worsening or concerning symptoms, such as fever greater than 101 F, shaking chills, worsening abdominal pain, persistent vomiting, blood in stool, or other bothersome symptoms. Prescriptions: No Action aspirin 81 mg tablet,delayed release (DR/EC) 81 mg PO DAILY Qty: 90 2RF lisinopril 40 mg tablet 40 mg PO DAILY Qty: 90 3RF pravastatin 20 mg tablet 20 mg PO BEDTIME Qty: 90 2RF carvedilol 6.25 mg tablet 6.25 mg PO BID Qty: 180 2RF trazodone 50 mg tablet 50 mg PO BEDTIME PRN (Reason: insomnia) Qty: 90 2RF tolterodine [Detrol LA] 2 mg capsule,extended release 24hr 2 - 4 mg PO BEDTIME Qty: 180 2RF fluticasone propionate 50 mcg/actuation spray,suspension 2 spray Intranasal DAILY PRN (Reason: Allergy Symptoms) 0RF Label Comments: only takes when stuffed up Referrals: Shant Weaver MD [Primary Care Provider] - <Lindy Suarez DO - Last Filed: 09/30/21 07:15> Cosign ED Attending Cosmarianneature Attestation: I was immediately available in the department for consultation. Documentation has been reviewed. I agree with assessment and plan.
[2021-09-29 14:15] LABS: Add Manual Diff / Slide Review NO; Basophils Absolute Auto 0 /uL (0-100); Basophils Percent Auto 0.7 % (0-2); Eosinophils Absolute Auto 200 /uL (0-450); Eosinophils Percent Auto 2.8 % (2-4); Hematocrit 45.2 % (41-53); Hemoglobin 15.3 g/dL (13.5-17.5); Lymphocytes Absolute Auto 1000 /uL (1100-4500); Lymphocytes Percent Auto 16.3 % (25-40); Mean Corpuscular HGB Conc 33.9 % (30-36); Mean Corpuscular Hemoglobin 31.5 PG (26-34); Mean Corpuscular Volume 92.9 fL (80-100); Monocytes Absolute Auto 400 /uL (0-900); Neutrophils Absolute Auto 4600 /uL (1500-7000); Neutrophils Percent Auto 73.2 % (50-75); Platelet Count 181 X10^3/uL (150-400); Red Blood Cell Count 4.86 X10^6/uL (4.5-5.9); Red Cell Distribution Width 13.2 % (11.6-14.8); White Blood Cell Count 6.3 X10^3/uL (4.5-11.0)
[2021-09-29 14:20] LABS: Alanine Aminotransferase 14 IU/L (<50); Albumin 4.5 g/dL (3.5-5.0); Albumin Globulin Ratio 1.6 (1.0-2.8); Alkaline Phosphatase 62 U/L (38-126); Aspartate Aminotransferase 29 IU/L (17-59); BUN Creatinine Ratio 17.5 (6-22); Bilirubin Total 0.9 mg/dL (0.2-1.3); Blood Urea Nitrogen 17 mg/dL (9-20); Calcium 9.5 mg/dL (8.4-10.2); Carbon Dioxide 31 mmol/L (22-32); Chloride 102 mmol/L (98-107); Estimated Glomerular Filt Rate > 60.0 mL/min (>60); Globulin 2.9 g/dL (1.7-4.1); Glucose 92 mg/dL (80-110); HEMOLYSIS < 15 (0-50); Potassium 4.8 mmol/L (3.4-5.1); Sodium 139 mmol/L (137-145); Total Protein 7.4 g/dL (6.3-8.2)
[2021-09-29 14:21] LABS: Lipase 75 U/L (23-300)
[2021-09-29 15:03] VITALS: BP 172/79; PULSE 71; RESP 16; O2SAT 97
== END 2021-09-29 15:04 | disposition home or self-care (01) ==
PROVIDERS: Emergency Medicine; Emergency Provider Physician Assistant; PCP Internal Medicine
DX: K92.1 Melena (principal); R10.9 Unspecified abdominal pain
CPT/HCPCS: 36415; 80053; 83690; 85025; 86850; 86900; 86901; 99283

== ENCOUNTER → 2021-11-10 11:13 | Outpatient (CLI) | payer MEDICARE, OTHER, SELFPAY ==
[2021-11-10 14:45] LABS: COVID19 -Nasal RAPID Negative (Negative)
== END ==
PROVIDERS: PCP Internal Medicine; Visit Provider Family Medicine Sleep Medicine
DX: Z20.822 Contact with and (suspected) exposure to COVID-19 (principal)
CPT/HCPCS: 87635; C9803

== ENCOUNTER 2021-11-11 08:03 | Day surgery (SDC) | payer MEDICARE, OTHER, SELFPAY ==
[2021-11-11] MEDS: PROPARACAINE 0.5% OPHTH SOL 2 DROPS EYE-OP (08:59)
[2021-11-11] MEDS: CATARACT EYE COMPOUND (10 DROPS/SYRINGE) 3 DROPS EYE-OP (09:01)
[2021-11-11 09:03] VITALS: BP 169/92; PULSE 81; RESP 20; TEMP 36.8; O2SAT 97; BMI 25.0
--- NOTE | 2021-11-11 09:42 | PM.PREOP ---
Pre-operative Note Interval Note History & Physical reviewed/Exam performed by Physician: Yes Changes to H&P: No
--- NOTE | 2021-11-11 09:42 | PM.OP.1 ---
Operative Date/Time/Diagnoses Pre-op diagnosis: Nuclear cataract right eye Procedure & Clinicians Procedure: Cataract Surgery Same procedure as scheduled: Yes Surgeon: Henri Cochran Anesthesia Type: MAC +/- and Sedation Operative Notes Procedure in detail: Patient brought to the operating suite. Tetracaine drops placed in the right eye. Patient was prepped and draped in sterile manner. Wire lid speculum was placed in the eye. Betadine drops were placed on the eye. This was irrigated. Lidocaine jelly was placed on the eye. A paracentesis port was created with a side-port blade. 0.1 mL 1% preservative free lidocaine was injected into the anterior chamber. The anterior chamber was deepened with viscoelastic. 2.6 mm keratome was used to create a temporal clear corneal incision. The pupil was floppy and miotic. A 6.25 mm Malyugin ring was used to enlarge the pupil. Cystotome and Utrata forceps were used to create continuous tear capsulorrhexis. Balanced salt solution was used to hydro dissect the nucleus. The phacoemulsification handpiece was inserted and the nucleus was removed using the stop and chop technique. The irrigation aspiration handpiece was inserted and the remaining cortex was removed. Anterior chamber was deepened with viscoelastic. An Hyde DIB00 intraocular lens with a power of 22.0 was injected into the capsular bag. The malyugin ring was removed. Irrigation aspiration handpiece was inserted and the remaining viscoelastic was removed. Incision was hydrated with balanced salt solution and found to be leak free with pressure with Weck-Kaylynn sponges. 0.1 mL Vigamox injected anterior chamber. 0.3 mL Kenalog 10 mg was injected subconjunctivally. Lid speculum was removed. The patient left the operating room in excellent condition. Complications: none Post-operative Condition: stable Disposition: same day surgery
[2021-11-11] MEDS: MOXIFLOXACIN INJ 4 MG/0.8 ML VIAL 0.5 MG EYE-OP (09:58)
[2021-11-11] MEDS: HYALURONATE SODIUM 30 MG-10 MG/ML SYRINGES 1 BOX INTRAOCULA (09:58)
[2021-11-11] MEDS: PHENYLEPHRINE/LIDOCAINE VIAL (OR) 0.2 ML EYE-OP (09:59)
[2021-11-11] MEDS: TETRACAINE 0.5% OPHTH DROPS 4 ML 2 DROPS EYE-OP (09:59)
[2021-11-11] MEDS: BALANCED SALT IRRIG SOLN NO.2 500 ML, EPINEPHrine 1 MG IRR (09:59)
[2021-11-11] MEDS: TRIAMCINOLONE 50 MG/5 ML VIAL INJ (09:59)
[2021-11-11] MEDS: LIDOCAINE 2% (GLYDO) 6 ML GEL TOP (09:59)
[2021-11-11 10:16] VITALS: BP 135/75; PULSE 72; RESP 16; TEMP 36.6; O2SAT 98
== END 2021-11-11 10:51 | disposition home or self-care (01) ==
PROVIDERS: PCP Internal Medicine; Referring Provider Ophthalmology; Visit Provider Ophthalmology
PROC: (CPT 66984; principal; 2021-11-11 08:45)
DX: H25.11 Age-related nuclear cataract, right eye (principal); I10 Essential (primary) hypertension
CPT/HCPCS: 66984; J0171; J2250; J3301

== ENCOUNTER → 2021-11-24 10:31 | Outpatient (CLI) | payer MEDICARE, OTHER, SELFPAY ==
[2021-11-24 15:26] LABS: COVID19 -Nasal RAPID Negative (Negative)
== END ==
PROVIDERS: PCP Internal Medicine; Visit Provider Nurse Practitioner Family
DX: Z20.822 Contact with and (suspected) exposure to COVID-19 (principal)
CPT/HCPCS: 87635; C9803

== ENCOUNTER 2021-11-25 05:59 | Day surgery (SDC) | payer MEDICARE, OTHER, SELFPAY ==
[2021-11-25] MEDS: CATARACT EYE COMPOUND (10 DROPS/SYRINGE) 3 DROPS EYE-OP (06:45)
[2021-11-25] MEDS: PROPARACAINE 0.5% OPHTH SOL 2 DROPS EYE-OP (06:45)
[2021-11-25 07:04] VITALS: BP 162/84; PULSE 72; RESP 16; TEMP 36.6; O2SAT 98; BMI 25.0
--- NOTE | 2021-11-25 07:33 | PM.PREOP ---
Pre-operative Note Interval Note History & Physical reviewed/Exam performed by Physician: Yes Changes to H&P: No
--- NOTE | 2021-11-25 07:33 | PM.OP.1 ---
Operative Date/Time/Diagnoses Pre-op diagnosis: Nuclear Cataract Left eye Post-op diagnosis: same Procedure & Clinicians Same procedure as scheduled: Yes Surgeon: Henri Cochran Anesthesia Type: MAC +/- and Sedation Operative Notes Procedure in detail: Patient brought to the operating suite. Tetracaine drops placed in the left eye. Patient was prepped and draped in sterile manner. Wire lid speculum was placed in the eye. Betadine drops were placed on the eye. This was irrigated. Lidocaine jelly was placed on the eye. A paracentesis port was created with a side-port blade. 0.1 mL 1% preservative free lidocaine was injected into the anterior chamber. The anterior chamber was deepened with viscoelastic. 2.6 mm keratome was used to create a temporal clear corneal incision. The pupil was floppy and miotic. A 6.25 mm Malyugin ring was used to enlarge the pupil. Cystotome and Utrata forceps were used to create continuous tear capsulorrhexis. Balanced salt solution was used to hydro dissect the nucleus. The phacoemulsification handpiece was inserted and the nucleus was removed using the stop and chop technique. The irrigation aspiration handpiece was inserted and the remaining cortex was removed. Anterior chamber was deepened with viscoelastic. An Hyde DIB00 intraocular lens with a power of 23.0 was injected into the capsular bag. The Malyugin ring was removed. Irrigation aspiration handpiece was inserted and the remaining viscoelastic was removed. Incision was hydrated with balanced salt solution and found to be leak free with pressure with Weck-Kaylynn sponges. 0.1 mL Vigamox injected anterior chamber. 0.3 mL Kenalog 10 mg was injected subconjunctivally. Lid speculum was removed. The patient left the operating room in excellent condition. Complications: none Post-operative Condition: stable Disposition: same day surgery
--- NOTE | 2021-11-25 07:54 | SUR.OPER ---
Supine on eye stretcher, head on extension cradle secured with tape. Arms tucked at sides with blanket. Pillow under knees.
[2021-11-25] MEDS: HYALURONATE SODIUM 30 MG-10 MG/ML SYRINGES 1 BOX INTRAOCULA (07:56)
[2021-11-25] MEDS: MOXIFLOXACIN INJ 4 MG/0.8 ML VIAL 0.5 MG EYE-OP (07:56)
[2021-11-25] MEDS: PHENYLEPHRINE/LIDOCAINE VIAL (OR) 0.2 ML EYE-OP (07:57)
[2021-11-25] MEDS: LIDOCAINE 2% (GLYDO) 6 ML GEL TOP (07:57)
[2021-11-25] MEDS: TRIAMCINOLONE 50 MG/5 ML VIAL INJ (07:57)
[2021-11-25] MEDS: TETRACAINE 0.5% OPHTH DROPS 4 ML 2 DROPS EYE-OP (07:58)
[2021-11-25] MEDS: BALANCED SALT IRRIG SOLN NO.2 500 ML, EPINEPHrine 1 MG IRR (07:58)
--- NOTE | 2021-11-25 08:33 | SUR.PHASEII ---
resdy to go, ride called, small delay in availability. will be here soon.
[2021-11-25 08:34] VITALS: BP 112/72; PULSE 64; RESP 16; TEMP 36.5; O2SAT 97
== END 2021-11-25 08:35 | disposition home or self-care (01) ==
PROVIDERS: PCP Internal Medicine; Referring Provider Ophthalmology; Visit Provider Ophthalmology
PROC: (CPT 66984; principal; 2021-11-25 07:45)
DX: H25.12 Age-related nuclear cataract, left eye (principal); I10 Essential (primary) hypertension
CPT/HCPCS: 66984; J0171; J2250; J3301

== ENCOUNTER → 2022-07-13 08:42 | Outpatient (CLI) | payer MEDICARE, OTHER, SELFPAY ==
[2022-07-13 10:50] LABS: Alanine Aminotransferase 14 IU/L (<50); Albumin Globulin Ratio 1.5 (1.0-2.8); Alkaline Phosphatase 74 U/L (38-126); Aspartate Aminotransferase 21 IU/L (17-59); BUN Creatinine Ratio 17.9 (6-22); Bilirubin Total 0.7 mg/dL (0.2-1.3); Blood Urea Nitrogen 20 mg/dL (9-20); Calcium 9.1 mg/dL (8.4-10.2); Carbon Dioxide 28 mmol/L (22-32); Chloride 101 mmol/L (98-107); Cholesterol 105 mg/dL (140-199); Estimated Glomerular Filt Rate > 60 mL/min (>60); Globulin 2.7 g/dL (1.7-4.1); Glucose 87 mg/dL (80-110); HDL Cholesterol 20 mg/dL (40-60); HEMOLYSIS < 15 (0-50); LDL Cholesterol Calculated 54 mg/dL (<100); Potassium 4.7 mmol/L (3.4-5.1); Sodium 140 mmol/L (137-145); Total Protein 6.7 g/dL (6.3-8.2); Triglycerides 154 mg/dL (35-150)
== END ==
PROVIDERS: PCP Internal Medicine; Referring Provider Internal Medicine; Visit Provider Internal Medicine
DX: E78.2 Mixed hyperlipidemia (principal); I10 Essential (primary) hypertension; N18.31 Chronic kidney disease, stage 3a
CPT/HCPCS: 36415; 80053; 80061

== ENCOUNTER → 2022-08-19 14:41 | Outpatient (CLI) | payer MEDICARE, OTHER, SELFPAY ==
[2022-08-19 18:39] LABS: Influenza A - CEPHEID Flu A NEGATIVE (NEGATIVE); Influenza B - CEPHEID Flu B NEGATIVE (NEGATIVE); Respiratory Syncytial Virus POSITIVE (Negative)
[2022-08-19 18:43] LABS: COVID-19 CEPHEID 4-PLEX PCR Negative (Negative)
== END ==
PROVIDERS: PCP Internal Medicine; Referring Provider Nurse Practitioner Family; Visit Provider Nurse Practitioner Family
DX: R05.9 Cough, unspecified (principal); Z20.822 Contact with and (suspected) exposure to COVID-19
CPT/HCPCS: 0241U

== ENCOUNTER 2023-04-17 16:50 | Emergency (ER) | payer MEDICARE, OTHER, SELFPAY ==
[2023-04-17 16:53] VITALS: BP 179/88; PULSE 85; RESP 19; TEMP 36.4; O2SAT 98; BMI 25.8
--- NOTE | 2023-04-17 16:57 | DI.RAD.S_ITS ---
PROCEDURE: XR FINGER LT MIN 2V INDICATIONS: table saw vs thumb TECHNIQUE: AP hand, 2 views of the left thumb finger(s) acquired. COMPARISON: [facility], ROSE, FINGER LT, 12/13/2015, 17:28. FINDINGS: Bones: No fractures or dislocations. No suspicious bony lesions. Soft tissues: No suspicious soft tissue calcifications. Soft tissue irregularity over the volar distal phalanx. IMPRESSION: Soft tissue injury without osseous abnormality. Dictated by: Dony Lee M.D. on 04/17/2023 at 16:33 Approved by: Dony Lee M.D. on 04/17/2023 at 16:34
--- NOTE | 2023-04-17 17:05 | ED.WOUNDLAC ---
HPI - Wound/Laceration <Maryjo Salinas, [facility] - Last Filed: 04/17/23 18:54> General Chief Complaint: Wound/Laceration Stated Complaint: Finger lac Time Seen by Provider: 04/17/23 17:02 Source: patient Mode of arrival: Ambulatory History of Present Illness HPI narrative: This is an 87-year-old gentleman who presents to the emergency department with a left thumb laceration from a table saw just prior to arrival. States that he is right-handed and accidentally got his thumb into the saw when it pulled forward. His last tetanus vaccination was in 2020, he has a laceration across the finger pad of his left thumb. Denies any fingernail involvement, is not anticoagulated, did not take any pain medication prior to arrival and denies any history diabetes. Denies any significant medical conditions and states that his pain is mild at this time. No other injuries. Patient complains of epigastric pain and indigestion, states he has a history of GERD but does not have any Tums and denies shortness of breath or chest pain. Related Data Home Medications Medication Instructions Recorded Confirmed fluticasone propionate 50 2 spray intranasal DAILY PRN 07/24/21 12/22/22 mcg/actuation nasal Allergy Symptoms spray,suspension oxybutynin chloride 10 mg 10 mg PO DAILY 06/23/22 12/22/22 tablet,extended release 24 hr Previous Rx's Medication Instructions Recorded aspirin 81 mg tablet,delayed 81 mg PO DAILY #90 tabs 12/04/20 release benzonatate 100 mg capsule 100 mg PO BID PRN cough #20 caps 08/19/22 trazodone 50 mg tablet 50 - 100 mg PO BEDTIME PRN 10/20/22 insomnia #180 tabs carvedilol 6.25 mg tablet 6.25 mg PO BID #180 tabs 10/27/22 lisinopril 40 mg tablet 40 mg PO DAILY #90 tabs 10/27/22 pravastatin 20 mg tablet 20 mg PO BEDTIME #90 tabs 10/27/22 cyclobenzaprine 10 mg tablet 10 mg PO TID PRN muscle spasm #30 12/22/22 tabs meloxicam 15 mg tablet 15 mg PO DAILY #10 tabs 12/22/22 Allergies Allergy/AdvReac Type Severity Reaction Status Date / Time cephalexin AdvReac Severe Anaphylaxis Verified 04/17/23 16:53 Review of Systems <SHARONDA Edwards - Last Filed: 04/17/23 18:54> Review of Systems ROS Unobtainable: All systems reviewed & are unremarkable except as noted in HPI and below Patient History <SHARONDA Edwards - Last Filed: 04/17/23 18:54> Medical History BPH w urinary obs/LUTS Carpal tunnel syndrome Chronic gout (~2009) Chronic renal failure, stage 3a Essential (primary) hypertension (~1984) Gout (~2008) Hearing loss (~1994) History of urinary incontinence (~2009) Laceration of left hand (~09/09/20) Mixed hyperlipidemia Nocturia Osteoarthritis of left knee Sleep disorder Tinnitus (~1979) Urge incontinence (~2009) Surgical History Anesthesia History of carpal tunnel surgery of right wrist History of cholecystectomy (~1984) S/P tonsillectomy and adenoidectomy Family History Father Stroke Mother History of heart disease Brother Cancer Daughter Cancer Social History household members: family Smoking Status: Former smoker alcohol intake: current Smoking Status: Former smoker alcohol intake frequency: a few times a month Alcohol type: beer Substance Use Type: does not use Exam <SHARONDA Edwards - Last Filed: 04/17/23 18:54> Narrative Exam Narrative: Reviewed vitals signs and nursing notes. General: Pleasant, sitting upright, in no acute distress, well groomed, afebrile HEENT: symmetrical facial expressions, moist mucous membranes, neck is supple CV: regular rate and rhythm, warm extremities Respiratory: normal work of breathing, without tachypnea or hypoxia. GI: abdomen soft, nondistended, without CVA tenderness bilaterally. MSK: moves all extremities, no weakness, normal tone,, flexion-extension isolated each joint of the left thumb and are intact, patient does not have any bony tenderness to palpation, has a 4 cm irregular and contaminated laceration across the finger pad, no visualized vascular or tendon lacerations, patient was hemostatic, wound was thoroughly irrigated with normal saline prior to wound closure Skin: brisk capillary refill, see above Neuro: clear speech and normal cognition, A&O x3, GCS 15, no focal motor or sensation deficits Initial Vital Signs Initial Vital Signs: Vital Signs Temperature 97.6 F 04/17/23 16:53 Pulse Rate 85 04/17/23 16:53 Respiratory Rate 19 04/17/23 16:53 Blood Pressure 179/88 H 04/17/23 16:53 Pulse Oximetry 98 04/17/23 16:53 Oxygen Delivery Method Room Air 04/17/23 16:53 <Jennifer Cesar DO - Last Filed: 04/20/23 10:16> Initial Vital Signs Initial Vital Signs: Vital Signs Temperature 97.6 F 04/17/23 16:53 Pulse Rate 85 04/17/23 16:53 Respiratory Rate 19 04/17/23 16:53 Blood Pressure 179/88 H 04/17/23 16:53 Pulse Oximetry 98 04/17/23 16:53 Oxygen Delivery Method Room Air 04/17/23 16:53 Procedures <SHARONDA Edwards - Last Filed: 04/17/23 18:54> Laceration Repair Laceration 1: Time of procedure: 17:22 Site: hand Side (If applicable): left Size (cm): 4 Description: irregular and contaminated Depth: simple, single layer Local Anesthetic: lidocaine 2% (Digital block-successful result) Amount of anesthesia used (mL): 6 Pre-repair: wound explored (X-ray for foreign body/acute fracture), irrigated extensively and deep structures intact Skin layer closed with: nylon Skin layer suture size: 5-0 Number of sutures: 18 Technique: simple, interrupted Course <SHARONDA Edwards - Last Filed: 04/17/23 18:54> Orders Ordered: Discontinued Medications Acetaminophen (Acetaminophen 325 Mg Tablet) 650 mg PO NOW ONE Stop: 04/17/23 17:06 Last Admin: 04/17/23 17:25 Dose: 650 mg Documented By: SPF Al Hydrox/Mg Hydrox/Simethicone (Mag Hydrox/Alum/Simeth 30 Ml Udc) 30 ml PO NOW ONE Stop: 04/17/23 17:21 Last Admin: 04/17/23 17:25 Dose: 30 ml Documented By: SPF Bacitracin (Bacitracin Oint 0.9 Gm Pckt) 1 applic TOP NOW ONE Stop: 04/17/23 17:21 Last Admin: 04/17/23 17:26 Dose: 1 applic Documented By: SPF Lidocaine HCl (Lidocaine 2% Inj Sdv 5ml) 5 ml INJ INTRA-OP ONE Stop: 04/17/23 17:03 Last Admin: 04/17/23 17:31 Dose: 5 ml Documented By: SPF Naproxen (Naproxen 250 Mg Tablet) 250 mg PO NOW ONE Stop: 04/17/23 17:06 Last Admin: 04/17/23 17:32 Dose: Not Given Documented By: SPF Vital Signs Vital signs: Vital Signs - 8 hr 04/17/23 16:53 04/17/23 18:54 Temperature 97.6 F Pulse Rate 85 67 Respiratory Rate 19 20 Blood Pressure 179/88 H 131/75 Pulse Oximetry 98 97 Oxygen Delivery Method Room Air Room Air <Jennifer Cesar, - Last Filed: 04/20/23 10:16> Orders Ordered: Discontinued Medications Acetaminophen (Acetaminophen 325 Mg Tablet) 650 mg PO NOW ONE Stop: 04/17/23 17:06 Last Admin: 04/17/23 17:25 Dose: 650 mg Documented By: SPF Al Hydrox/Mg Hydrox/Simethicone (Mag Hydrox/Alum/Simeth 30 Ml Udc) 30 ml PO NOW ONE Stop: 04/17/23 17:21 Last Admin: 04/17/23 17:25 Dose: 30 ml Documented By: SPF Bacitracin (Bacitracin Oint 0.9 Gm Pckt) 1 applic TOP NOW ONE Stop: 04/17/23 17:21 Last Admin: 04/17/23 17:26 Dose: 1 applic Documented By: SPF Lidocaine HCl (Lidocaine 2% Inj Sdv 5ml) 5 ml INJ INTRA-OP ONE Stop: 04/17/23 17:03 Last Admin: 04/17/23 17:31 Dose: 5 ml Documented By: SPF Naproxen (Naproxen 250 Mg Tablet) 250 mg PO NOW ONE Stop: 04/17/23 17:06 Last Admin: 04/17/23 17:32 Dose: Not Given Documented By: SPF Vital Signs Vital signs: Vital Signs - 8 hr 04/17/23 16:53 04/17/23 18:54 Temperature 97.6 F Pulse Rate 85 67 Respiratory Rate 19 20 Blood Pressure 179/88 H 131/75 Pulse Oximetry 98 97 Oxygen Delivery Method Room Air Room Air MDM - Wound/Laceration <SHARONDA Edwards - Last Filed: 04/17/23 18:54> Imaging Data Extremity x-ray #1: Radiologist's Impression: [address] [place] [id number] XRay Report Signed Patient: Shant Ricketts MR#: [id number] : 1935 Acct:[id number] Age/Sex: 87 / M Date of Service: 04/17/23 Loc: ED Accession Number: [id number] ?? Procedure: XR finger LT min 2V Ordering Provider: Jennifer Cesar D.O. PROCEDURE:? XR FINGER LT MIN 2V ? INDICATIONS:? table saw vs thumb ? TECHNIQUE:? AP hand, 2 views of the left thumb finger(s) acquired.? ? COMPARISON:? [facility], , FINGER LT, 12/13/2015, 17:28. ? FINDINGS:? ? Bones:? No fractures or dislocations.? No suspicious bony lesions.? ? Soft tissues:? No suspicious soft tissue calcifications.? Soft tissue irregularity over the volar distal phalanx. ? IMPRESSION:? Soft tissue injury without osseous abnormality. ? ? Dictated by: Dony Lee M.D. on 04/17/2023 at 16:33 ? ? Approved by: Dony Lee M.D. on 04/17/2023 at 16:34 ? [facility] Narrative Medical decision making narrative: Chief Complaint: Table saw injury to left thumb Multiple etiologies for patient's complaint considered including, but not limited to: Skin laceration, acute fracture, foreign body, tendon injury, vascular injury I have independently reviewed the patient's vital signs and nursing notes as well as prior records if available. Plan: Wound care, x-ray for foreign by/open fracture, pain control, last tetanus vaccination 2020 Course of Care: Patient's thumb has a large irregular laceration with missing dermis. Wound was thoroughly irrigated with 500 mL normal saline, no foreign body, no visible tendon injury, flexion extension isolated against resistance at each joint was intact without deficit, patient did not have any bony tenderness to palpation or axial load, he has a brisk cap refill, no visualized vascular injury and he is well-perfused. A wound care referral was placed for recheck of wound in 2-3 days. He was given supplies to change his 1st dressing. Wound was hemostatic at discharge. Social considerations that may affect disposition: none Questions are addressed and there is agreement with the plan and for follow-up with wound care. I consulted with the ED attending physician Dr. Cesar as needed for higher level of care considerations and they were available for discussion and recommendations regarding plan of care and diagnostic testing. Patient is appropriate for outpatient management. Discharge Plan Departure Patient Disposition: Home Clinical Impression: Contact with powered saw as cause of accidental injury Complicated laceration of finger Qualifiers: Encounter type: initial encounter Qualified Code(s): S61.219A - Laceration without foreign body of unspecified finger without damage to nail, initial encounter Instructions: DI for Laceration Repair Activity Restrictions/Additional Instructions: *You have been diagnosed with a complicated thumb laceration with some loose sutures to allow for drainage and healing. Try to keep this elevated and try not to use your thumb very much over the next few days. Use Tylenol as needed for pain, change her dressing tomorrow if saturated, please call the wound care clinic at [phone] if they have not called you by Wednesday to set up a wound check appointment. Thank you for coming in and for your patience today, it was really nice to meet you and see your talented craft. If you develop redness or streaking up your thumb, worsening pain and lots of redness, please come back in for evaluation of infection. It is okay to shower like usual, please keep it covered with a Band-Aid at minimum to help keep it clean. *What to do: *Please continue to take your regular medications as directed. [ ] New medication prescriptions sent to your pharmacy: [ ] [ ] New medication written as a paper prescription [ x] No new medications given *Please call and schedule follow up with your primary care provider in 2-3 days, at least for an update. Let them know you were seen in the Emergency Department for the above problem. We will electronically transmit a record of today's note if your PCP or specialist is in our system. *If you do not have a primary care provider please contact [phone] to establish care with one of the [facility] primary care providers. *Return to the Emergency Department for worsening symptoms, inability to keep liquids down, fever greater than 101F, chills, or other concerning symptom. Prescriptions: No Action benzonatate 100 mg capsule 100 mg PO BID PRN (Reason: cough) Qty: 20 0RF aspirin 81 mg tablet,delayed release (DR/EC) 81 mg PO DAILY Qty: 90 2RF trazodone 50 mg tablet 50 - 100 mg PO BEDTIME PRN (Reason: insomnia) Qty: 180 3RF lisinopril 40 mg tablet 40 mg PO DAILY Qty: 90 3RF carvedilol 6.25 mg tablet 6.25 mg PO BID Qty: 180 3RF pravastatin 20 mg tablet 20 mg PO BEDTIME Qty: 90 3RF oxybutynin chloride 10 mg tablet extended release 24hr 10 mg PO DAILY meloxicam 15 mg tablet 15 mg PO DAILY Qty: 10 3RF Rx Instructions: do not use for more than 5 days at a time cyclobenzaprine 10 mg tablet 10 mg PO TID PRN (Reason: muscle spasm) Qty: 30 3RF fluticasone propionate 50 mcg/actuation spray,suspension 2 spray Intranasal DAILY PRN (Reason: Allergy Symptoms) Patient Comments: only takes when stuffed up Referrals: [facility] [[facility]] Shant Weaver MD [Primary Care Provider] - Stand Alone Forms: Patient Portal/API <Jennifer Cesar DO - Last Filed: 04/20/23 10:16> Cosign ED Attending Clarence Attestation: I was immediately available in the department for consultation. Documentation has been reviewed.
[2023-04-17] MEDS: ACETAMINOPHEN 325 MG TABLET 650 MG PO (17:25)
[2023-04-17] MEDS: MAG HYDROX/ALUM/SIMETH 30 ML UDC PO (17:25)
[2023-04-17] MEDS: BACITRACIN OINT 0.9 GM PCKT 1 APPLIC TOP (17:26)
[2023-04-17] MEDS: LIDOCAINE 2% INJ SDV 5ML 5 ML INJ (17:31)
[2023-04-17 18:54] VITALS: BP 131/75; PULSE 67; RESP 20; O2SAT 97
== END 2023-04-17 18:55 | disposition home or self-care (01) ==
PROVIDERS: Emergency Provider Nurse Practitioner Critical Care Medicine; PCP Internal Medicine
DX: S61.012A Laceration without foreign body of left thumb without damage to nail, initial encounter (principal); W27.0XXA Contact with workbench tool, initial encounter
CPT/HCPCS: 12002; 64450; 73140; 99283; 99284

== ENCOUNTER → 2023-04-20 09:55 | Outpatient (CLI) | payer MEDICARE, OTHER, SELFPAY | PROVIDERS: PCP Internal Medicine; Referring Provider Nurse Practitioner Critical Care Medicine; Visit Provider Surgery | DX: S61.012A Laceration without foreign body of left thumb without damage to nail, initial encounter (principal) | CPT/HCPCS: 97597; 99203; 99213 ==

== ENCOUNTER → 2023-04-27 11:18 | Outpatient (CLI) | payer MEDICARE, OTHER, SELFPAY | PROVIDERS: PCP Internal Medicine; Referring Provider Nurse Practitioner Critical Care Medicine; Visit Provider Surgery | DX: S61.012A Laceration without foreign body of left thumb without damage to nail, initial encounter (principal) | CPT/HCPCS: 11042 ==

== ENCOUNTER → 2023-05-04 11:36 | Outpatient (CLI) | payer MEDICARE, OTHER, SELFPAY | PROVIDERS: PCP Internal Medicine; Referring Provider Nurse Practitioner Critical Care Medicine; Visit Provider Surgery | DX: S61.211A Laceration without foreign body of left index finger without damage to nail, initial encounter (principal) | CPT/HCPCS: 99213 ==

== ENCOUNTER → 2023-05-18 11:12 | Outpatient (CLI) | payer MEDICARE, OTHER, SELFPAY | PROVIDERS: PCP Internal Medicine; Referring Provider Nurse Practitioner Critical Care Medicine; Visit Provider Surgery | DX: S61.112D Laceration without foreign body of left thumb with damage to nail, subsequent encounter (principal) | CPT/HCPCS: 99213 ==

== ENCOUNTER → 2023-06-03 10:27 | Outpatient (CLI) | payer MEDICARE, OTHER, SELFPAY ==
[2023-06-03 11:22] LABS: Alanine Aminotransferase 21 IU/L (<50); Albumin 3.8 g/dL (3.5-5.0); Albumin Globulin Ratio 1.5 (1.0-2.8); Alkaline Phosphatase 74 U/L (38-126); Aspartate Aminotransferase 26 IU/L (17-59); BUN Creatinine Ratio 13.8 (6-22); Bilirubin Total 0.6 mg/dL (0.2-1.3); Blood Urea Nitrogen 16 mg/dL (9-20); Calcium 9.2 mg/dL (8.4-10.2); Carbon Dioxide 31 mmol/L (22-32); Chloride 103 mmol/L (98-107); Cholesterol 123 mg/dL (140-199); Estimated Glomerular Filt Rate > 60 mL/min (>60); Globulin 2.6 g/dL (1.7-4.1); Glucose 95 mg/dL (80-110); HDL Cholesterol 28 mg/dL (40-60); HEMOLYSIS < 15 (0-50); LDL Cholesterol Calculated 74 mg/dL (<100); Potassium 4.8 mmol/L (3.4-5.1); Sodium 138 mmol/L (137-145); Total Protein 6.4 g/dL (6.3-8.2); Triglycerides 104 mg/dL (35-150)
== END ==
PROVIDERS: PCP Internal Medicine; Referring Provider Internal Medicine; Visit Provider Internal Medicine
DX: E78.2 Mixed hyperlipidemia (principal); I10 Essential (primary) hypertension; N18.31 Chronic kidney disease, stage 3a
CPT/HCPCS: 36415; 80053; 80061

== ENCOUNTER 2023-09-28 15:26 | Emergency (ER) | payer MEDICARE, OTHER, SELFPAY ==
[2023-09-28 15:28] VITALS: BP 146/72; PULSE 70; RESP 18; TEMP 36.6; O2SAT 98; BMI 25.8
--- NOTE | 2023-09-28 15:51 | PC.NURSE ---
Pt reports he has been feeling ill with cough, sinus pressure and tested + for COVID today. Daughter sent him to ED. Pt is AAOx3, [place], 98% RA, denies CP. No OTC meds taken. No distress.
[2023-09-28 16:20] VITALS: BP 140/70; PULSE 72; RESP 18; O2SAT 98
--- NOTE | 2023-09-28 19:07 | ED_ITS ---
HPI - URI/Sore Throat <Mikayla Betancur PA-C - Last Filed: 09/28/23 19:12> General Chief Complaint: Upper Respiratory Symptoms Stated Complaint: covid+ Time Seen by Provider: 09/28/23 16:02 Source: patient Mode of arrival: Ambulatory History of Present Illness HPI Narrative: Patient is an 87-year-old male with CKD stage 3, hypertension and former smoker who presents with COVID infection. Had a positive home COVID test today and was encouraged by his family to come to the emergency room. He has felt ill for approximately 3 days with cough, fatigue and congestion. He has been taking some kind of jxjm-nsz-aqbuiuf cold medicine although he does not recall what it is. He denies fever or chills, shortness of breath, difficulty breathing or chest pain. He has been able to drink adequate fluids but has minimal appetite. He previously received multiple COVID vaccines. Related Data Home Medications Medication Instructions Recorded Confirmed turmeric 1 cap PO DAILY 04/30/23 06/22/23 Previous Rx's Medication Instructions Recorded aspirin 81 mg tablet,delayed 81 mg PO DAILY #90 tabs 12/04/20 release trazodone 50 mg tablet 50 - 100 mg (1 - 2 x 50 mg) PO 10/20/22 BEDTIME PRN insomnia #180 tabs carvedilol 6.25 mg tablet 6.25 mg PO BID #180 tabs 10/27/22 lisinopril 40 mg tablet 40 mg PO DAILY #90 tabs 10/27/22 pravastatin 20 mg tablet 20 mg PO BEDTIME #90 tabs 10/27/22 Allergies Allergy/AdvReac Type Severity Reaction Status Date / Time cephalexin AdvReac Severe Anaphylaxis Verified 06/22/23 09:52 Review of Systems <Mikayla Betancur PA-C - Last Filed: 09/28/23 19:12> Review of Systems ROS Unobtainable: All systems reviewed & are unremarkable except as noted in HPI and below Patient History <Mikayla Betancur PA-C - Last Filed: 09/28/23 19:12> Medical History Nocturia Sleep disorder Carpal tunnel syndrome Laceration of left hand (~09/09/20) Chronic renal failure, stage 3a Gout (~2008) Hearing loss (~1994) History of urinary incontinence (~2009) Osteoarthritis of left knee Chronic gout (~2009) Tinnitus (~1979) Mixed hyperlipidemia Essential (primary) hypertension (~1984) Urge incontinence (~2009) BPH w urinary obs/LUTS Surgical History History of carpal tunnel surgery of right wrist Anesthesia S/P tonsillectomy and adenoidectomy History of cholecystectomy (~1984) Family History Father Stroke Mother History of heart disease Brother Cancer Daughter Cancer Social History household members: family Smoking Status: Former smoker alcohol intake: current Smoking Status: Former smoker alcohol intake frequency: 0-2 drinks per day Alcohol type: beer Substance Use Type: does not use Exam <Mikayla Betancur PA-C - Last Filed: 09/28/23 19:12> Narrative Exam Narrative: GENERAL: 87 year old patient appears stated age. Well-developed patient, in no acute distress. Voice is congested. NEURO: AOx3. Hard of hearing. HEAD: Atraumatic. Normocephalic. EYES: Pupils equal round and reactive. Extraocular motions intact. No scleral icterus. No injection or drainage. ENT: Nose without bleeding or purulent drainage. Airway patent. NECK: Trachea midline. Non tender CARDIOVASCULAR: Regular rate and rhythm without murmurs, gallops, or rubs. RESPIRATORY: Clear to auscultation. Breath sounds equal bilaterally. No wheezes, rales, or rhonchi. SKIN: No rash or erythema of visible areas, no skin tenting. Initial Vital Signs Initial Vital Signs: Vital Signs Temperature 97.9 F 09/28/23 15:28 Pulse Rate 70 09/28/23 15:28 Respiratory Rate 18 09/28/23 15:28 Blood Pressure 146/72 H 09/28/23 15:28 Pulse Oximetry 98 09/28/23 15:28 Oxygen Delivery Method Room Air 09/28/23 15:28 <Lindy Suarez DO - Last Filed: 09/30/23 06:55> Initial Vital Signs Initial Vital Signs: Vital Signs Temperature 97.9 F 09/28/23 15:28 Pulse Rate 70 09/28/23 15:28 Respiratory Rate 18 09/28/23 15:28 Blood Pressure 146/72 H 09/28/23 15:28 Pulse Oximetry 98 09/28/23 15:28 Oxygen Delivery Method Room Air 09/28/23 15:28 Course <Mikayla Betancur PA-C - Last Filed: 09/28/23 19:12> Vital Signs Vital signs: Vital Signs - 8 hr 09/28/23 15:28 09/28/23 16:20 Temperature 97.9 F Pulse Rate 70 72 Respiratory Rate 18 18 Blood Pressure 146/72 H 140/70 Pulse Oximetry 98 98 Oxygen Delivery Method Room Air Room Air <Lindy Suarez DO - Last Filed: 09/30/23 06:55> Vital Signs Vital signs: Vital Signs - 8 hr 09/28/23 15:28 09/28/23 16:20 Temperature 97.9 F Pulse Rate 70 72 Respiratory Rate 18 18 Blood Pressure 146/72 H 140/70 Pulse Oximetry 98 98 Oxygen Delivery Method Room Air Room Air MDM - URI/Sore Throat <Mikayla Betancur PA-C - Last Filed: 09/28/23 19:12> MDM Narrative Medical decision making narrative: Multiple etiologies for patient's symptoms considered including, but not limited to: COVID infection, pneumonia, Patient with positive COVID test at home today and 3 days of symptoms. Patient has normal vital signs, is not hypoxic and has no increased work of breathing on exam. His lung sounds are clear. He appears adequately hydrated with moist mucous membranes and no skin tenting. Discussed Paxlovid; patient would like to avoid taking this medication but is interested in advice for bhwu-kwu-szklpii cold medicines. He over all does not feel terrible, just fatigued. Strict return precautions given. Patient's symptoms improved over duration of stay with above-stated therapies. Findings and discharge diagnosis discussed with patient/family followed by caleb macias of understanding Return precautions discussed with patient/family whom verbalize understanding of diagnosis and plan Discharge Plan Departure Patient Disposition: Home Clinical Impression: COVID-19 Instructions: DI for COVID-19 (Suspected or Confirmed ) Activity Restrictions/Additional Instructions: *You have been diagnosed with COVID infection. Your vital signs including your oxygen level are normal today. Your lung sound clear. I do not think you need any specific treatment for COVID but you might find the nwco-djq-yfxrhzs cold medicines are helpful. Robitussin is a medicine that can be helpful for cough. Mucinex is a medicine that can be helpful for congestion. You can also take Tylenol for headache or body aches or fever. Be sure to drink plenty of water and rest. If you develop any shortness of breath, chest pain, vomiting or confusion, please come back to the emergency room. Please stay home and isolate for 5 days and then continue to wear a mask for an additional 5 days. This is in accordance with the current CDC guidelines. *What to do: *Please continue to take your regular medications as directed. [ ] New medication prescriptions sent to your pharmacy: [ ] [ ] New medication written as a paper prescription [x] No new medications given *Please follow up with your primary care provider in 2-3 days, call for an appointment. Let them know you were seen in the Emergency Department and that we ask that you be seen in follow up. We will electronically transmit a record of today's note if your PCP is in our system *If you do not have a primary care provider please contact the [facility] Resource line at [phone]. They will ask some questions about your medical history and help get you set up with a doctor in the community. *Return to Emergency Department if you should have any new, worsening or concerning symptoms, such as [fever greater than 101 F, shaking chills, worsening pain, persistent vomiting or other concerning symptoms]. Prescriptions: No Action aspirin 81 mg tablet,delayed release (DR/EC) 81 mg PO DAILY Qty: 90 2RF trazodone 50 mg tablet 50 - 100 mg PO BEDTIME PRN (Reason: insomnia) Qty: 180 3RF lisinopril 40 mg tablet 40 mg PO DAILY Qty: 90 3RF carvedilol 6.25 mg tablet 6.25 mg PO BID Qty: 180 3RF pravastatin 20 mg tablet 20 mg PO BEDTIME Qty: 90 3RF turmeric 1 cap PO DAILY Referrals: Shant Weaver MD [Primary Care Provider] - Stand Alone Forms: Patient Portal/API ED Sign-out <Lindy Suarez DO - Last Filed: 09/30/23 06:55> Cosign ED Attending Cosignature Attestation: I was available for consultation.
== END 2023-09-28 16:21 | disposition home or self-care (01) ==
PROVIDERS: Emergency Provider Physician Assistant; PCP Internal Medicine
DX: U07.1 COVID-19 (principal)
CPT/HCPCS: 99281

== ENCOUNTER → 2024-06-21 10:37 | Outpatient (CLI) | payer MEDICARE, OTHER, SELFPAY ==
[2024-06-21 12:26] LABS: Alanine Aminotransferase 13 IU/L (<50); Albumin 3.8 g/dL (3.5-5.0); Albumin Globulin Ratio 1.4 (1.0-2.8); Alkaline Phosphatase 71 U/L (38-126); Aspartate Aminotransferase 27 IU/L (17-59); BUN Creatinine Ratio 16.7 (6-22); Blood Urea Nitrogen 18 mg/dL (9-20); Carbon Dioxide 28 mmol/L (22-32); Chloride 104 mmol/L (98-107); Cholesterol 124 mg/dL (140-199); Estimated Glomerular Filt Rate > 60 mL/min (>60); Globulin 2.8 g/dL (1.7-4.1); Glucose 89 mg/dL (80-110); HDL Cholesterol 23 mg/dL (40-60); HEMOLYSIS < 15 (0-50); LDL Cholesterol Calculated 74 mg/dL (<100); Potassium 4.7 mmol/L (3.4-5.1); Sodium 139 mmol/L (137-145); Total Protein 6.6 g/dL (6.3-8.2); Triglycerides 134 mg/dL (35-150)
== END ==
LOC: LAB 10:39
PROVIDERS: PCP Internal Medicine; Referring Provider Internal Medicine; Visit Provider Internal Medicine
DX: I12.9 Hypertensive chronic kidney disease with stage 1 through stage 4 chronic kidney disease, or unspecified chronic kidney disease (principal); N18.31 Chronic kidney disease, stage 3a; E78.2 Mixed hyperlipidemia
CPT/HCPCS: 36415; 80053; 80061

== ENCOUNTER 2025-02-03 12:29 | Emergency (ER) | payer MEDICARE, OTHER, SELFPAY ==
[2025-02-03] VITALS (20 sets, daily range): BP systolic 136–179; BP diastolic 67–84; PULSE 55–68; RESP 16–26; TEMP 37.1; O2SAT 96–100
--- NOTE | 2025-02-03 12:52 | EKG_ITS ---
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
[2025-02-03 12:54] LABS: Add Manual Diff / Slide Review NO; Basophils Absolute Auto 100 /uL (0-100); Eosinophils Absolute Auto 200 /uL (0-450); Eosinophils Percent Auto 4.3 % (2-4); Hematocrit 45.1 % (41-53); Hemoglobin 15.7 g/dL (13.5-17.5); Lymphocytes Absolute Auto 1200 /uL (1100-4500); Lymphocytes Percent Auto 21.4 % (25-40); Mean Corpuscular HGB Conc 34.7 % (30-36); Mean Corpuscular Volume 95.1 fL (80-100); Monocytes Absolute Auto 400 /uL (0-900); Neutrophils Absolute Auto 3800 /uL (1500-7000); Neutrophils Percent Auto 66.3 % (50-75); Platelet Count 186 X10^3/uL (150-400); Red Blood Cell Count 4.75 X10^6/uL (4.5-5.9); Red Cell Distribution Width 13.5 % (11.6-14.8); White Blood Cell Count 5.7 X10^3/uL (4.5-11.0)
[2025-02-03 12:56] LABS: BUN Creatinine Ratio 16.5 (6-22); Blood Urea Nitrogen 22 mg/dL (9-20); Calcium 9.7 mg/dL (8.4-10.2); Carbon Dioxide 29 mmol/L (22-32); Chloride 103 mmol/L (98-107); Estimated Glomerular Filt Rate 51 mL/min (>60); Glucose 101 mg/dL (70-99); HEMOLYSIS 23 (0-50); Potassium 5.2 mmol/L (3.4-5.1); Sodium 140 mmol/L (137-145)
[2025-02-03 13:08] LABS: Troponin I < 0.012 ng/mL (0.01-0.034)
[2025-02-03] MEDS: MECLIZINE HCL 12.5 MG TABLET 25 MG PO (16:31)
[2025-02-03] MEDS: LACTATED RINGERS 1,000 ML 1000 ML IV (16:31)
--- NOTE | 2025-02-03 17:57 | INF.NOTE ---
Pt able to ambulate in barr 20 ft and return to room. States feeling a little dizzy but better than before. notified.
--- NOTE | 2025-02-03 18:15 | ED_ITS ---
HPI - Dizziness General Chief Complaint: Dizziness Stated Complaint: Dizziness/Vertigo Time Seen by Provider: 02/03/25 15:53 Source: patient and EMS Mode of arrival: EMS History of Present Illness HPI Narrative: 89 year old male with history of primary hypertension, CKD3, HLD, hearing loss and tinnitus here with spinning sensation that started this morning while was laying in bed. He had awoken from sleep, and noted it worsened with sitting up in bed. He was able to ambulate through his home, noted symptoms to be improving with rest, then intensified again while up in the kitchen. Had a 3rd episode of vertigo while waiting to be seen. Reports overall vertigo has improved while resting in ED room. He reports chronic tinnitus and hearing loss; no prior diagnoses of Meniere's disease. Denies recent respiratory infectious symptoms. Denies associated PAREDES or fever. No prior history of stroke, denies unilateral weakness, speech or visual disturbance. Denies recent illness such as v/d, chest pain or dyspnea. He had an episode similar to this that resolved on it's own years ago. Related Data Home Medications Medication Instructions Recorded Confirmed turmeric 1 cap PO DAILY 04/30/23 12/21/24 Previous Rx's Medication Instructions Recorded aspirin 81 mg tablet,delayed 81 mg PO DAILY #90 tabs 12/04/20 release carvedilol 6.25 mg tablet 6.25 mg PO BID #180 tabs 10/18/24 lisinopril 40 mg tablet 40 mg PO DAILY #90 tabs 10/18/24 pravastatin 20 mg tablet 20 mg PO BEDTIME #90 tabs 10/18/24 trazodone 50 mg tablet 50 - 100 mg (1 - 2 x 50 mg) PO 10/18/24 BEDTIME PRN insomnia #180 tabs meclizine 12.5 mg tablet 12.5 mg PO TID PRN dizziness #10 02/03/25 tabs Allergies Allergy/AdvReac Type Severity Reaction Status Date / Time cephalexin AdvReac Severe Anaphylaxis Verified 12/21/24 13:47 Review of Systems Review of Systems Narrative: Negative except as stated in HPI Patient History Medical History (Updated 02/03/25 @ 18:18 by Ana Villegas MD) COVID-19 (~09/2023) Nocturia Sleep disorder Carpal tunnel syndrome Laceration of left hand (~09/09/20) Chronic renal failure, stage 3a Gout (~2008) Hearing loss (~1994) History of urinary incontinence (~2009) Osteoarthritis of left knee Chronic gout (~2009) Tinnitus (~1979) Mixed hyperlipidemia Essential (primary) hypertension (~1984) Urge incontinence (~2009) BPH w urinary obs/LUTS Surgical History History of carpal tunnel surgery of right wrist Anesthesia S/P tonsillectomy and adenoidectomy History of cholecystectomy (~1984) Family History Father Stroke Mother History of heart disease Brother Cancer Daughter Cancer Social History household members: family alcohol intake: current alcohol intake frequency: 0-2 drinks per day Alcohol type: beer Exam Initial Vital Signs Initial Vital Signs: Vital Signs Blood Pressure 175/77 H 02/03/25 12:32 Constitutional: Well appearing, no acute distress Head: NCAT Cardiovascular: RRR, no murmur or rub Pulmonary: CTA bilaterally, no respiratory distress Abdominal: soft, non-tender Extremities: No LE edema Skin: warm and dry, no diaphoresis Neurological: Alert and oriented x3. Follows commands. Normal EOM. No visual loss. No facial palsy. Equal 5/5 strength UE and LEs. No limb ataxia. Normal sensation. Normal speech. No dysarthria. No truncal ataxia. Normal coordination. No nystagmus noted. Negative test of skew. Vertigo precipitated with sitting up in bed and swinging legs over the side Course Orders Ordered: Discontinued Medications Lactated Ringer's (Lactated Ringers) 1,000 mls @ 1,000 mls/hr IV BOLUS ONE Stop: 02/03/25 17:15 Last Infusion: 02/03/25 17:57 Dose: Infused Documented By: Admin: 02/03/25 16:31 Dose: 1,000 mls/hr Documented By: ERICA Meclizine HCl (Meclizine Hcl 12.5 Mg Tablet) 25 mg PO NOW ONE Stop: 02/03/25 16:17 Last Admin: 02/03/25 16:31 Dose: 25 mg Documented By: ERICA Vital Signs Vital signs: Vital Signs - 8 hr 02/03/25 12:32 02/03/25 12:34 02/03/25 12:38 Temperature 98.7 F Pulse Rate 66 68 Respiratory Rate 19 Blood Pressure 175/77 H 175/84 H Pulse Oximetry 99 98 Oxygen Delivery Method Room Air 02/03/25 13:00 02/03/25 13:00 02/03/25 13:30 Temperature Pulse Rate 60 60 Respiratory Rate 20 21 Blood Pressure 149/70 H Pulse Oximetry 99 98 Oxygen Delivery Method 02/03/25 13:30 02/03/25 14:00 02/03/25 14:30 Temperature Pulse Rate 63 58 L Respiratory Rate 24 23 Blood Pressure 147/75 H Pulse Oximetry 96 98 Oxygen Delivery Method 02/03/25 14:31 02/03/25 14:31 02/03/25 15:00 Temperature Pulse Rate 57 L Respiratory Rate 24 Blood Pressure 164/73 H 153/75 H Pulse Oximetry 98 Oxygen Delivery Method 02/03/25 15:00 02/03/25 15:30 02/03/25 15:31 Temperature Pulse Rate 57 L 57 L 56 L Respiratory Rate 20 18 22 Blood Pressure Pulse Oximetry 99 96 98 Oxygen Delivery Method 02/03/25 15:31 02/03/25 16:00 02/03/25 16:01 Temperature Pulse Rate 55 L 55 L Respiratory Rate 20 24 Blood Pressure 164/68 H Pulse Oximetry 100 100 Oxygen Delivery Method 02/03/25 16:01 02/03/25 16:30 02/03/25 16:30 Temperature Pulse Rate 57 L Respiratory Rate 26 H Blood Pressure 158/74 H 155/75 H Pulse Oximetry 100 Oxygen Delivery Method 02/03/25 17:00 02/03/25 17:00 02/03/25 17:30 Temperature Pulse Rate 57 L 56 L Respiratory Rate 22 16 Blood Pressure 179/78 H Pulse Oximetry 99 100 Oxygen Delivery Method Room Air 02/03/25 17:31 02/03/25 17:31 02/03/25 17:56 Temperature Pulse Rate 55 L 57 L Respiratory Rate 20 17 Blood Pressure 163/77 H Pulse Oximetry 99 98 Oxygen Delivery Method 02/03/25 17:56 Temperature Pulse Rate Respiratory Rate Blood Pressure 166/73 H Pulse Oximetry Oxygen Delivery Method MDM - Dizziness Lab Data 02/03/25 12:30 02/03/25 12:30 Labs: Lab Results 02/03/25 Range/Units 12:30 WBC 5.7 (4.5-11.0) X10^3/uL RBC 4.75 (4.5-5.9) X10^6/uL Hgb 15.7 (13.5-17.5) g/dL Hct 45.1 (41-53) % MCV 95.1 (80-100) fL MCH 33.0 (26-34) PG MCHC 34.7 (30-36) % RDW 13.5 (11.6-14.8) % Plt Count 186 (150-400) X10^3/uL Neut % (Auto) 66.3 (50-75) % Lymph % (Auto) 21.4 L (25-40) % [place] % (Auto) 7.0 (3-14) % Eos % (Auto) 4.3 H (2-4) % Baso % (Auto) 1.0 (0-2) % Neut # (Auto) 3800 (2165-3455) /uL Lymph # (Auto) 1200 (6388-1567) /uL [place] # (Auto) 400 (0-900) /uL Eos # (Auto) 200 (0-450) /uL Baso # (Auto) 100 (0-100) /uL Sodium 140 (137-145) mmol/L Potassium 5.2 H (3.4-5.1) mmol/L Chloride 103 (98-107) mmol/L Carbon Dioxide 29 (22-32) mmol/L BUN 22 H (9-20) mg/dL Creatinine 1.33 H (0.66-1.25) mg/dL Estimated GFR 51 L (>60) mL/min BUN/Creatinine Ratio 16.5 (6-22) Glucose 101 H (70-99) mg/dL Calcium 9.7 (8.4-10.2) mg/dL Troponin I < 0.012 (0.01-0.034) ng/mL Urine Dip Bedside Urine Glucose Negative Bedside Urine Bilirubin - Negative Bedside Urine Ketone - Negative Urine Specific [place] 1.010 Bedside Urine Occult Blood - Negative Bedside Urine pH 8 Bedside Urine Protein - Negative Bedside Urine Urobilinogen - Negative Bedside Urine Nitrite - Negative Bedside Urine Leukocytes - Negative Esterase MDM Narrative Medical decision making narrative: Differential diagnoses for dizziness includes (but not limited to): Vestibular neuritis, Labyrinthitis, Posterior circulation ischemic stroke/TIA, Vestibular migraine, Meniere disease, Benign paroxysmal positional vertigo, Orthostatic hypotension, Cardiac dysrhythmia, Adverse reactions to medications, including ototoxic medications (eg, aminoglycosides, loop diuretics), Substance use disorders and intoxication (eg, EtOH, benzodiazepines), Toxidrome such as CO poisoning In this patient, neurological exam is WNL. Favor peripheral etiology of vertigo given dizziness is triggered by changes in position, episodic, lasting a few minutes at a time (ie BPPV). Meniere's disease also high on differential given chronic tinnitus/hearing loss. Will treat with PO meclizine and reassess. EKG: NSR with bradycardia, 1st degree AV block, normal QRS/QTc, no LESTER/D. CBC benign. Slight BUN/Cr elevation compared to baseline, prerenal. Troponin non elevated. On recheck after Meclizine, pt reports symptoms are greatly improved. He has not had any recurrent vertigo. He ambulates with a steady gait in the ED. At this time patient is stable for discharge. Counseled on various causes of vertigo and probable BPPV, offered PRN meclizine for home. S/sx stroke/Return precautions discussed and provided prior to discharge. Discharge Plan Departure Patient Disposition: Home Clinical Impression: Benign paroxysmal positional vertigo Instructions: DI for Vertigo Activity Restrictions/Additional Instructions: I am glad that you are feeling better. I think that the spinning sensation you are experiencing is related to an inner ear issue such as with benign paroxysmal positional vertigo. As we discussed you do also have some symptoms that may be consistent more with Meniere's disease. I have prescribed you a medication called meclizine to use at home as needed if her symptoms reoccur. You could also try, if you are up for it, a maneuver called Erika's maneuver at home. There are tutorial is of this online. Please return to the emergency department if the symptoms of vertigo are persistent and not resolving or if you are having new symptoms that would be concerning for stroke such as disturbances in speech or vision, unable to walk, leaning to one side, or other symptoms that are concerning to you. Please follow-up with your family doctor regarding your ED visit. They can check on you see how you are doing and they may want to do some further testing if you are continuing to have intermittent symptoms. Prescriptions: New meclizine 12.5 mg tablet 12.5 mg PO TID PRN (Reason: dizziness) Qty: 10 0RF No Action aspirin 81 mg tablet,delayed release (DR/EC) 81 mg PO DAILY Qty: 90 2RF lisinopril 40 mg tablet 40 mg PO DAILY Qty: 90 3RF carvedilol 6.25 mg tablet 6.25 mg PO BID Qty: 180 3RF pravastatin 20 mg tablet 20 mg PO BEDTIME Qty: 90 3RF trazodone 50 mg tablet 50 - 100 mg PO BEDTIME PRN (Reason: insomnia) Qty: 180 3RF turmeric 1 cap PO DAILY Referrals: Shant Weaver MD [Primary Care Provider] - Stand Alone Forms: Patient Portal/API/Survey
== END 2025-02-03 18:39 | disposition home or self-care (01) ==
PROVIDERS: Emergency Provider Student in an Organized Health Care Education/Training Program; PCP Internal Medicine
DX: H81.10 Benign paroxysmal vertigo, unspecified ear (principal)
CPT/HCPCS: 80048; 81003; 84484; 85025; 93005; 96360; 99284

== ENCOUNTER → 2025-03-10 13:58 | Outpatient (CLI) | payer MEDICARE, OTHER, SELFPAY ==
[2025-03-10 15:06] LABS: Influenza A - CEPHEID Flu A NEGATIVE (NEGATIVE); Influenza B - CEPHEID Flu B NEGATIVE (NEGATIVE)
[2025-03-10 15:15] LABS: COVID-19 CEPHEID 4-PLEX PCR Negative (Negative)
== END ==
PROVIDERS: PCP Internal Medicine; Visit Provider Chiropractor
DX: R05.1 Acute cough (principal)
CPT/HCPCS: 87637

== ENCOUNTER → 2025-06-19 10:30 | Outpatient (CLI) | payer MEDICARE, OTHER, SELFPAY ==
[2025-06-19 12:09] LABS: Alanine Aminotransferase 13 IU/L (<50); Albumin 3.7 g/dL (3.5-5.0); Albumin Globulin Ratio 1.5 (1.0-2.8); Alkaline Phosphatase 72 U/L (38-126); Blood Urea Nitrogen 19 mg/dL (9-20); Calcium 9.1 mg/dL (8.4-10.2); Carbon Dioxide 28 mmol/L (22-32); Chloride 103 mmol/L (98-107); Cholesterol 104 mg/dL (140-199); Estimated Glomerular Filt Rate > 60 mL/min (>60); Globulin 2.5 g/dL (1.7-4.1); Glucose 88 mg/dL (70-99); HDL Cholesterol 25 mg/dL (40-60); HEMOLYSIS < 15 (0-50); Potassium 4.5 mmol/L (3.4-5.1); Sodium 139 mmol/L (137-145); Total Protein 6.2 g/dL (6.3-8.2); Triglycerides 84 mg/dL (35-150); Uric Acid 6.2 mg/dL (3.5-8.5)
== END ==
PROVIDERS: PCP Internal Medicine; Referring Provider Internal Medicine; Visit Provider Internal Medicine
DX: E78.2 Mixed hyperlipidemia (principal); N18.31 Chronic kidney disease, stage 3a; I10 Essential (primary) hypertension; M1A.9XX0 Chronic gout, unspecified, without tophus (tophi)
CPT/HCPCS: 36415; 80053; 80061; 84550